=== PATIENT | female | born 1945 | race Caucasian/White ===

== ENCOUNTER 2018-02-08 16:28 | Inpatient (IN) | payer MEDICARE, BC ==
[~2018-02-08] VITALS: Ht 160 cm; Wt 110.5 kg
[~2018-02-08 16:28] MED LIST: AMLO1TAB53 PO; ASPI-611 PO; CHOL100046 PO; CINN500C2 PO; DIPH-423 PO; DULO-31 PO; GARL1000 PO; MAGN400C PO; MELA5TAB14 PO; METF500T PO; NEBI10TA2 PO; OMEP20CA4 PO; POTA8TAB46 PO; PRAV40TA65 PO; PRED20TA PO; UBID100C16 PO
[2018-02-08] MEDS ORDERED: hydrALAZINE 20mg/ml inj. IV ONE (17:05)
[2018-02-08] MEDS ORDERED: nitroGLYCERIN 0.4mg/hour patch TD ONE (17:05)
[2018-02-08] MEDS ORDERED: ondansetron/PF 4mg/2ml inj IV ONE ×2 (17:05→19:50)
[2018-02-08] MEDS ORDERED: aspirin 81mg tab.chew PO ONE (17:05)
[2018-02-08 17:29] LABS: BASOPHILS % (AUTO) 0.2 % (0-1); EOSINOPHILS # (AUTO) 0.3 X10'3 (0-0.9); EOSINOPHILS % (AUTO) 1.3 % (0-6); HEMATOCRIT 25.6 % (35.0-45.0); HEMOGLOBIN 8.4 g/dl (12.0-16.0); LYMPHOCYTES # (AUTO) 1.4 X10'3 (1.1-4.8); LYMPHOCYTES % (AUTO) 6.3 % (21-51); MEAN CORPUSCULAR VOLUME 84.9 FL (78-98); MEAN PLATELET VOLUME 8.8 FL (7.4-10.4); NEUTROPHILS # (AUTO) 18.1 X10'3 (1.8-7.7); NEUTROPHILS % (AUTO) 83.2 % (42-75); PLATELET COUNT 320 X10'3 (140-440); RED BLOOD COUNT 3.02 X10'6 (4.20-5.60); RED CELL DISTRIBUTION WIDTH 17.1 % (11.5-14.5); WHITE BLOOD COUNT 21.7 X10'3 (4.5-11.0)
[2018-02-08 17:49] LABS: ALANINE AMINOTRANSFERASE 751 U/L (12-78); ALBUMIN/GLOBULIN RATIO 0.8 (1.1-1.5); ALKALINE PHOSPHATASE 95 IU/L (46-116); ANION GAP 12 (8-16); ASPARTATE AMINO TRANSFERASE 422 U/L (10-37); BILIRUBIN,TOTAL 2.5 MG/DL (0.1-1.0); BLOOD UREA NITROGEN 20 MG/DL (7-18); BUN/CREATININE RATIO 18.5 (6.6-38.0); CALCIUM 8.8 MG/DL (8.5-10.1); CHLORIDE 96 MMOL/L (99-107); CREATININE 1.08 MG/DL (0.40-0.90); GLUCOSE 141 MG/DL (70-104); MAGNESIUM 1.8 MG/DL (1.5-2.4); SODIUM 136 MMOL/L (135-145); TOTAL CARBON DIOXIDE 27.9 MMOL/L (24-32); eGFR 50 ML/MIN
[2018-02-08 17:53] LABS: POTASSIUM 2.6 MMOL/L (3.5-5.1)
[2018-02-08 18:59] LABS: INR 1.3 INR; PARTIAL THROMBOPLASTIN TIME 23 SECONDS (22-32); PROTHROMBIN TIME 12.7 SECONDS (9.0-12.0)
[2018-02-08] MEDS: potassium 10mEq/100ml NS w/LIDOcaine (10mg/bag) IV SCH ×2 (19:09→21:09)
[2018-02-08 19:43] LABS: CLARITY,URINE SLIGHTLY CLOUDY (Clear); COLOR,URINE YELLOW (Yellow); GLUCOSE, URINE NEGATIVE (Neg); KETONES,URINE 15 mg/dl (Neg); LEUKOCYTE ESTERASE ,URINE SMALL (Neg); NITRITES, URINE NEGATIVE (Neg); OCCULT BLOOD,URINE NEGATIVE (Neg); PROTEIN,URINE NEGATIVE (Neg); UA COLLECTION TYPE CLN CATCH MIDSTREAM
[2018-02-08 19:52] LABS: BACTERIA,URINE 2+ /HPF (Neg); RBC,URINE 0-2 /HPF (0-2); SQUAMOUS EPITHELIAL CELL,UR FEW /LPF (FEW)
[2018-02-08] MEDS ORDERED: levoFLOXACIN-Levaquin 500mg/D5 100 ML IV ONE (20:05)
[2018-02-08 20:25] LABS: LIPASE 983 U/L (73-393)
[2018-02-08] MEDS ORDERED: FLU VACC QS2017-18 36MOS UP/PF 60 MCG/0.5 ML SYRINGE IMVAC ONE (20:55)
[2018-02-08] MEDS ORDERED: ESOM20CA PO (21:02)
[2018-02-08] MEDS ORDERED: diphenhydrAMINE 50 mg/ml inj IV ONE (21:40)
[2018-02-08] MEDS ORDERED: methylPREDNISolone sod succ 125mg/2ml vial IV ONE (21:40)
[2018-02-08] MEDS ORDERED: iohexol 350MG/ML 100ml bottle IV ONE (21:54)
[2018-02-09] VITALS (24 sets, daily range): BP systolic 80–134; BP diastolic 36–51
[2018-02-09] MEDS ORDERED: ondansetron/PF 4mg/2ml inj IV ONE (01:45)
[2018-02-09 02:09] LABS: HEMATOCRIT 27.3 % (35.0-45.0); HEMOGLOBIN 9.1 g/dl (12.0-16.0); MEAN CORPUSCULAR HEMOGLOBIN 28.1 PG (27.0-31.0); MEAN CORPUSCULAR HGB CONC 33.3 % (33.0-36.5); MEAN CORPUSCULAR VOLUME 84.5 FL (78-98); MEAN PLATELET VOLUME 9.4 FL (7.4-10.4); PLATELET COUNT 344 X10'3 (140-440); RED BLOOD COUNT 3.23 X10'6 (4.20-5.60); RED CELL DISTRIBUTION WIDTH 16.4 % (11.5-14.5); WHITE BLOOD COUNT 23.3 X10'3 (4.5-11.0)
[2018-02-09] MEDS ORDERED: magnesium hydroxide 30ml (MOM) UD suspension PO PRN (02:20)
[2018-02-09] MEDS ORDERED: mag hydrox/Alum hydrox/simeth 30ml oral suspension PO PRN (02:20)
[2018-02-09] MEDS ORDERED: magnesium 2GM in 50ml NS 50 ML IV PRN (02:20)
[2018-02-09] MEDS ORDERED: potassium Cl 20 mEq SR tablet PO PRN ×2 (02:20)
[2018-02-09] MEDS ORDERED: magnesium Cl slow-release 64mg tablet PO PRN (02:20)
[2018-02-09] MEDS ORDERED: acetaminophen 325mg tablet PO PRN (02:20)
[2018-02-09] MEDS ORDERED: potassium Cl 40MEQ/NS 500ml 500 ML IV PRN ×2 (02:20)
[2018-02-09] MEDS ORDERED: ondansetron/PF 4mg/2ml inj IV PRN (02:20)
[2018-02-09] MEDS ORDERED: HYDROmorphone inj. 0.5 MG/0.5 ML DISP.SYRIN IV PRN ×3 (02:20→08:05)
[2018-02-09] MEDS ORDERED: magnesium 4gm in 100ml NS 100 ML IV PRN (02:20)
[2018-02-09 02:34] LABS: PLATELET ESTIMATE NORMAL
[2018-02-09 02:37] LABS: ANISOCYTOSIS 1+; POLYCHROMASIA FEW
[2018-02-09 02:38] LABS: MICROCYTOSIS 1+
[2018-02-09 02:51] LABS: HEMOGLOBIN A1C 5.4 % (4.5-6.2)
[2018-02-09] MEDS ORDERED: normal saline 1000ML IV soln IVB ONE ×2 (03:05)
[2018-02-09] MEDS: potassium Cl 20mEq in NS 1,000 ML IV SCH ×2 (03:36→11:35)
[2018-02-09] MEDS ORDERED: metoclopramide 5 mg/ml inj IV PRN (05:15)
[2018-02-09] MEDS ORDERED: non-formulary drug (Amlodipine/Valsartan/Hctz (Exforge Hct 10-320-25 Mg Tab) 1 EACH) PO SCH (08:00)
[2018-02-09] MEDS: potassium chloride 8mEq ER tablet PO SCH ×2 (08:00→20:00)
[2018-02-09] MEDS ORDERED: levoFLOXACIN-Levaquin 750MG/D5 150 ML IV SCH (08:00)
[2018-02-09] MEDS ORDERED: amLODIPine 5mg tablet PO SCH (08:00)
[2018-02-09] MEDS ORDERED: magnesium oxide 400mg tablet PO SCH (08:00)
[2018-02-09] MEDS ORDERED: HYDROchlorothiazide 25mg tablet PO SCH (08:00)
[2018-02-09] MEDS ORDERED: CINNAMON BARK PO SCH (08:00)
[2018-02-09] MEDS ORDERED: duloxetine 30mg CAPSULE.DR PO SCH (08:00)
[2018-02-09] MEDS ORDERED: HYDROmorphone 1 mg/ml syringe IV PRN (08:05)
[2018-02-09 08:12] LABS: HEMATOCRIT 24.9 % (35.0-45.0); HEMOGLOBIN 8.1 g/dl (12.0-16.0); MEAN CORPUSCULAR HEMOGLOBIN 28.4 PG (27.0-31.0); MEAN CORPUSCULAR HGB CONC 32.7 % (33.0-36.5); MEAN PLATELET VOLUME 9.3 FL (7.4-10.4); PLATELET COUNT 293 X10'3 (140-440); RED BLOOD COUNT 2.86 X10'6 (4.20-5.60); RED CELL DISTRIBUTION WIDTH 17.8 % (11.5-14.5)
[2018-02-09 08:15] LABS: ALBUMIN 3.1 G/DL (3.4-5.0); ANION GAP 34 (8-16); BLOOD UREA NITROGEN 26 MG/DL (7-18); BUN/CREATININE RATIO 16.4 (6.6-38.0); CALCIUM 8.3 MG/DL (8.5-10.1); CHLORIDE 97 MMOL/L (99-107); CREATININE 1.59 MG/DL (0.40-0.90); GLUCOSE 156 MG/DL (70-104); SODIUM 140 MMOL/L (135-145); eGFR 32 ML/MIN
[2018-02-09 08:20] LABS: WHITE BLOOD COUNT 27.8 X10'3 (4.5-11.0)
[2018-02-09 08:30] LABS: ANISOCYTOSIS 2+; NUCLEATED RED BLOOD CELLS 3 /100WBC (0-0); PLATELET ESTIMATE NORMAL; POLYCHROMASIA 3+; TOTAL CELLS COUNTED 100
[2018-02-09] MEDS: aspirin 81mg tab.chew PO SCH (08:30)
[2018-02-09 08:31] LABS: ALBUMIN/GLOBULIN RATIO 0.8 (1.1-1.5); ALKALINE PHOSPHATASE 105 IU/L (46-116); BILIRUBIN,TOTAL 3.4 MG/DL (0.1-1.0); LARGE PLATELETS FEW; POIKILOCYTOSIS FEW
[2018-02-09 08:32] LABS: ALANINE AMINOTRANSFERASE 1609 U/L (12-78); ASPARTATE AMINO TRANSFERASE 1695 U/L (10-37)
[2018-02-09 08:34] LABS: POTASSIUM 2.9 MMOL/L (3.5-5.1)
[2018-02-09 08:35] LABS: TOTAL CARBON DIOXIDE 9.5 MMOL/L (24-32)
[2018-02-09] MEDS: metroNIDAZOLE-Flagyl 500mg/NS 100 ML IV SCH ×2 (09:50→16:00)
[2018-02-09 10:05] LABS: ABG BASE EXCESS -20.9 mmol/L (-2.0-3.0); ABG HCO3 6.1 mmol/L (22.0-26.0); ABG PCO2 (T) 18.3 mmHg (32.0-45.0); ABG PH (T) 7.144 (7.350-7.450); ABG PO2 (T) 129.9 mmHg (83-108); FCOHb 0.5 % (0.5-1.5); FMetHb 0.3 % (0.3-1.12); FO2Hb 96.2 % (94-100); TOTAL HEMOGLOBIN 8.2 G/dl (12.0-16.0)
[2018-02-09] MEDS ORDERED: clindamycin-Cleocin 900mg/D5W 50 ML IV ONE (11:10)
[2018-02-09] MEDS ORDERED: GENTAMICIN IV ONE (11:10)
[2018-02-09] MEDS ORDERED: NORMAL SALINE IV ONE (11:10)
[2018-02-09] MEDS: sodium bicarbonate (8.4%) inj. 150 MEQ in dextrose 5%-water 1,000 ML IV SCH ×2 (11:17→19:13)
[2018-02-09] MEDS ORDERED: LIDOcaine 1% (10mg/ml) 2ml vial ONE (11:42)
[2018-02-09] MEDS ORDERED: clindamycin phosphate 150mg/ml inj. ONE (11:59)
[2018-02-09] MEDS ORDERED: gentamicin 40 MG/1 ML inj ONE (11:59)
[2018-02-09] MEDS ORDERED: heparin 10,000 units/1 ML INJ ONE ×2 (11:59→13:47)
[2018-02-09] MEDS ORDERED: ePHEDrine 50MG/ML INJ. ONE (12:21)
[2018-02-09] MEDS ORDERED: sevoflurane 250ml liquid IH ONE (12:21)
[2018-02-09] MEDS ORDERED: sodium bicarbonate (8.4%) 1 mEq/ml syringe ONE (12:21)
[2018-02-09] MEDS ORDERED: fentaNYL /PF 50mcg/ml 5ml ampule ONE (12:23)
[2018-02-09] MEDS ORDERED: rocuronium 10mg/ml inj IV ONE ×2 (12:26→14:13)
[2018-02-09] MEDS ORDERED: etomidate 2mg/ml inj. ONE (12:26)
[2018-02-09] MEDS ORDERED: NORepinephrine 8 MG in normal saline 250ml IV soln IV ONE (12:35)
[2018-02-09 13:00] LABS: ABG BASE EXCESS -22.3 mmol/L (-2.0-3.0); ABG HCO3 6.6 mmol/L (22.0-26.0); ABG OXYGEN SATURATION 99.7 % (95-98); ABG PCO2 (T) 25.3 mmHg (32.0-45.0); ABG PH (T) 7.034 (7.350-7.450); ABG PO2 (T) 443.5 mmHg (83-108); FMetHb 0.2 % (0.3-1.12); FO2Hb 98.5 % (94-100); TOTAL HEMOGLOBIN 7.1 G/dl (12.0-16.0)
[2018-02-09] MEDS ORDERED: DexTRAN 40/D5W 500ml soln 500 ML IV ONE (14:55)
[2018-02-09] MEDS ORDERED: metroNIDAZOLE-Flagyl 500mg/NS 100 ML IV SCH (16:00)
[2018-02-09] MEDS ORDERED: FENTANYL-0.9 % NACL/PF 100 ML IV PRN (16:00)
[2018-02-09 16:03] LABS: HEMATOCRIT 22.1 % (35.0-45.0); HEMOGLOBIN 7.2 g/dl (12.0-16.0); MEAN CORPUSCULAR HEMOGLOBIN 28.3 PG (27.0-31.0); MEAN CORPUSCULAR HGB CONC 32.7 % (33.0-36.5); MEAN CORPUSCULAR VOLUME 86.7 FL (78-98); MEAN PLATELET VOLUME 8.2 FL (7.4-10.4); PLATELET COUNT 98 X10'3 (140-440); RED BLOOD COUNT 2.55 X10'6 (4.20-5.60)
[2018-02-09] MEDS ORDERED: albumin (Human) 5% 250 ML IV solution IV STA (16:18)
[2018-02-09 16:21] LABS: WHITE BLOOD COUNT 26.1 X10'3 (4.5-11.0)
[2018-02-09] MEDS ORDERED: albumin (Human) 5% 250ml 500 ML IV ONE (16:21)
[2018-02-09 16:23] LABS: ANISOCYTOSIS 2+; MICROCYTOSIS 1+; NUCLEATED RED BLOOD CELLS 3 /100WBC (0-0); PLATELET ESTIMATE DECREASED; POLYCHROMASIA 2+; TOTAL CELLS COUNTED 100; TOXIC GRANULATION 1+
[2018-02-09 16:26] LABS: ALBUMIN 1.3 G/DL (3.4-5.0); ALBUMIN/GLOBULIN RATIO 0.7 (1.1-1.5); ALKALINE PHOSPHATASE 75 IU/L (46-116); ANION GAP 28 (8-16); BILIRUBIN,TOTAL 2.3 MG/DL (0.1-1.0); BLOOD UREA NITROGEN 26 MG/DL (7-18); BUN/CREATININE RATIO 16.5 (6.6-38.0); CALCIUM 6.8 MG/DL (8.5-10.1); CHLORIDE 107 MMOL/L (99-107); CREATININE 1.58 MG/DL (0.40-0.90); GLUCOSE 175 MG/DL (70-104); POTASSIUM 4.5 MMOL/L (3.5-5.1); SODIUM 147 MMOL/L (135-145); TOTAL PROTEIN 3.2 G/DL (6.4-8.2); eGFR 32 ML/MIN
[2018-02-09 16:33] LABS: TOTAL CARBON DIOXIDE 11.8 MMOL/L (24-32)
[2018-02-09 16:40] LABS: OXYGEN SATURATION (MIXED VEN) 87.3 % (60-80); PO2 MIXED VENOUS (TEMP COR) 57.7 mmHg (35-46)
[2018-02-09 16:42] LABS: ALANINE AMINOTRANSFERASE 4287 U/L (12-78); ASPARTATE AMINO TRANSFERASE > 7000 U/L (10-37)
[2018-02-09 16:45] LABS: ABG BASE EXCESS -17.2 mmol/L (-2.0-3.0); ABG HCO3 10.4 mmol/L (22.0-26.0); ABG OXYGEN SATURATION 93.5 % (95-98); ABG PCO2 (T) 29.9 mmHg (32.0-45.0); ABG PH (T) 7.155 (7.350-7.450); ABG PO2 (T) 80.4 mmHg (83-108); FMetHb 0.4 % (0.3-1.12); FO2Hb 93.1 % (94-100); MINUTE VOLUME 6 L/min; PEEP 5 cm H2O; RESPIRATORY RATE 12 b/min; RESPIRATORY RATE (OBSERVED) 12 b/min; TIDAL VOLUME 500 mL; TOTAL HEMOGLOBIN 8.9 G/dl (12.0-16.0)
[2018-02-09] MEDS ORDERED: fentaNYL/PF 50MCG/1 ML 2ML syringe IV PRN (17:20)
[2018-02-09] MEDS ORDERED: midazolam 2 mg/2 ml injection IV ONE (17:20)
[2018-02-09] MEDS ORDERED: ipratropium/albuterol 3ml nebule NEB PRN (17:20)
[2018-02-09] MEDS ORDERED: heparin 10,000 units/1 ML INJ IV ONE (18:40)
[2018-02-09] MEDS ORDERED: heparin 10,000 units/1 ML INJ IV PRN (18:40)
[2018-02-09] MEDS: ipratropium/albuterol 3ml nebule NEB SCH ×2 (18:45→22:27)
[2018-02-09 19:01] LABS: ABG BASE EXCESS -14.3 mmol/L (-2.0-3.0); ABG HCO3 11.8 mmol/L (22.0-26.0); ABG OXYGEN SATURATION 91.2 % (95-98); ABG PCO2 (T) 28.9 mmHg (32.0-45.0); ABG PH (T) 7.232 (7.350-7.450); ABG PO2 (T) 71.7 mmHg (83-108); FCOHb 0.3 % (0.5-1.5); FMetHb 0.2 % (0.3-1.12); FO2Hb 90.7 % (94-100); MINUTE VOLUME 8 L/min; PATIENT TEMPERATURE 37.2; PEEP 5 cm H2O; RESPIRATORY RATE 20 b/min; RESPIRATORY RATE (OBSERVED) 20 b/min; TIDAL VOLUME 375 mL; TOTAL HEMOGLOBIN 9.9 G/dl (12.0-16.0)
[2018-02-09 19:10] LABS: CLARITY,URINE CLOUDY (Clear); COLOR,URINE YELLOW (Yellow); GLUCOSE, URINE NEGATIVE (Neg); KETONES,URINE TRACE mg/dl (Neg); LEUKOCYTE ESTERASE ,URINE NEGATIVE (Neg); NITRITES, URINE NEGATIVE (Neg); OCCULT BLOOD,URINE LARGE (Neg); PROTEIN,URINE 100 mg/dl (Neg)
[2018-02-09 19:15] LABS: INR 3.8 INR; PARTIAL THROMBOPLASTIN TIME 65 SECONDS (22-32); PROTHROMBIN TIME 37.1 SECONDS (9.0-12.0)
[2018-02-09 19:16] LABS: UA COLLECTION TYPE FOLEY CATH
[2018-02-09 19:18] LABS: AMORPHOUS URATES 3+; BACTERIA,URINE FEW /HPF (Neg); SQUAMOUS EPITHELIAL CELL,UR FEW /LPF (FEW); WBC,URINE NONE SEEN /HPF (0-4)
[2018-02-09 19:43] LABS: UA EOSINOPHILS NO EOS /HPF
[2018-02-09] MEDS ORDERED: pravastatin 40mg tablet PO SCH (21:00)
[2018-02-09] MEDS: Melatonin 3mg tablet PO SCH (21:00)
[2018-02-09 23:45] LABS: ABG BASE EXCESS -8.4 mmol/L (-2.0-3.0); ABG HCO3 15.7 mmol/L (22.0-26.0); ABG OXYGEN SATURATION 92.3 % (95-98); ABG PCO2 (T) 28.3 mmHg (32.0-45.0); ABG PH (T) 7.363 (7.350-7.450); ABG PO2 (T) 68.2 mmHg (83-108); FCOHb 0.6 % (0.5-1.5); FO2Hb 91.7 % (94-100); MINUTE VOLUME 8 L/min; PEEP 5 cm H2O; RESPIRATORY RATE 20 b/min; RESPIRATORY RATE (OBSERVED) 20 b/min; TIDAL VOLUME 375 mL; TOTAL HEMOGLOBIN 11.5 G/dl (12.0-16.0)
[2018-02-10] VITALS (28 sets, daily range): BP systolic 118–172; BP diastolic 42–58
[2018-02-10] MEDS ORDERED: dextrose ORAL solution 15 GM/59 ML bottle PO PRN ×2 (01:00)
[2018-02-10] MEDS ORDERED: dextrose 50%-water 50ml dispensing syringe IV PRN ×2 (01:00)
[2018-02-10] MEDS ORDERED: normal saline 500ml IV soln 500 ML IV PRN (01:00)
[2018-02-10] MEDS ORDERED: glucagon, human recombinant 1mg kit SUBCUT PRN (01:00)
[2018-02-10] MEDS ORDERED: MESSAGE TO PHARMACY PO ONE (01:00)
[2018-02-10] MEDS: sodium bicarbonate (8.4%) inj. 150 MEQ in dextrose 5%-water 1,000 ML IV SCH ×4 (02:29→18:45)
[2018-02-10] MEDS: ipratropium/albuterol 3ml nebule NEB SCH ×6 (02:33→22:24)
[2018-02-10] MEDS ORDERED: insulin Lispro (HumaLOG) vial - multi-dose SQ ONE (03:07)
[2018-02-10 03:12] LABS: BASOPHILS % (AUTO) 0 % (0-1); EOSINOPHILS % (AUTO) 0 % (0-6); HEMATOCRIT 34.2 % (35.0-45.0); HEMOGLOBIN 11.4 g/dl (12.0-16.0); LYMPHOCYTES # (AUTO) 0.9 X10'3 (1.1-4.8); LYMPHOCYTES % (AUTO) 2.6 % (21-51); MEAN CORPUSCULAR HEMOGLOBIN 28.8 PG (27.0-31.0); MEAN CORPUSCULAR HGB CONC 33.3 % (33.0-36.5); MEAN CORPUSCULAR VOLUME 86.4 FL (78-98); MEAN PLATELET VOLUME 9.4 FL (7.4-10.4); MONOCYTES # (AUTO) 0.6 X10'3 (0-0.9); MONOCYTES % (AUTO) 1.7 % (2-12); NEUTROPHILS # (AUTO) 32.9 X10'3 (1.8-7.7); NEUTROPHILS % (AUTO) 95.7 % (42-75); PLATELET COUNT 104 X10'3 (140-440); RED BLOOD COUNT 3.96 X10'6 (4.20-5.60)
[2018-02-10 03:26] LABS: WHITE BLOOD COUNT 34.4 X10'3 (4.5-11.0)
[2018-02-10 03:31] LABS: ALBUMIN 1.5 G/DL (3.4-5.0); ALKALINE PHOSPHATASE 79 IU/L (46-116); ANION GAP 17 (8-16); BILIRUBIN,TOTAL 3.7 MG/DL (0.1-1.0); BLOOD UREA NITROGEN 32 MG/DL (7-18); BUN/CREATININE RATIO 15.8 (6.6-38.0); CHLORIDE 103 MMOL/L (99-107); CREATININE 2.03 MG/DL (0.40-0.90); GLUCOSE 293 MG/DL (70-104); HDL CHOLESTEROL 8 MG/DL (35-60); LDL CHOLESTEROL 7 MG/DL (50-100); MAGNESIUM 1.5 MG/DL (1.5-2.4); POTASSIUM 3.1 MMOL/L (3.5-5.1); SODIUM 141 MMOL/L (135-145); TOTAL CARBON DIOXIDE 20.7 MMOL/L (24-32); eGFR 24 ML/MIN
[2018-02-10 04:10] LABS: ABG BASE EXCESS -5.1 mmol/L (-2.0-3.0); ABG HCO3 18.8 mmol/L (22.0-26.0); ABG OXYGEN SATURATION 92.6 % (95-98); ABG PCO2 (T) 31.8 mmHg (32.0-45.0); ABG PH (T) 7.391 (7.350-7.450); ABG PO2 (T) 69.3 mmHg (83-108); FCOHb 0.7 % (0.5-1.5); FMetHb 0.1 % (0.3-1.12); FO2Hb 91.9 % (94-100); MINUTE VOLUME 8 L/min; PATIENT TEMPERATURE 37.2; PEEP 5 cm H2O; RESPIRATORY RATE 20 b/min; RESPIRATORY RATE (OBSERVED) 20 b/min; TIDAL VOLUME 375 mL; TOTAL HEMOGLOBIN 12.1 G/dl (12.0-16.0)
[2018-02-10 04:16] LABS: ANISOCYTOSIS 1+; NUCLEATED RED BLOOD CELLS 3 /100WBC (0-0); PLATELET ESTIMATE DECREASED; TOTAL CELLS COUNTED 100
[2018-02-10 04:17] LABS: MICROCYTOSIS 1+; POLYCHROMASIA 1+; TOXIC GRANULATION 1+
[2018-02-10 04:19] LABS: ALBUMIN/GLOBULIN RATIO 1.4 (1.1-1.5); TOTAL PROTEIN 2.6 G/DL (6.4-8.2)
[2018-02-10 04:34] LABS: CHOLESTEROL < 50 MG/DL (0-200); TRIGLYCERIDES < 15 MG/DL (20-135)
[2018-02-10 04:35] LABS: ALANINE AMINOTRANSFERASE 4932 U/L (12-78)
[2018-02-10 04:36] LABS: ASPARTATE AMINO TRANSFERASE > 7000 U/L (10-37)
[2018-02-10] MEDS: K and/or MAG REPLACEMENT MC SCH ×2 (04:47→08:00)
[2018-02-10] MEDS ORDERED: POTASSIUM CL IV ONE ×2 (04:55→04:57)
[2018-02-10] MEDS ORDERED: [UNRECOGNIZED DRUG - OTHER] IV ONE (04:55)
[2018-02-10] MEDS ORDERED: potassium Cl 40MEQ/250ML bag 250 ML IV ONE (05:00)
[2018-02-10] MEDS ORDERED: potassium Cl 40MEQ/NS 500ml 500 ML IV ONE (05:10)
[2018-02-10] MEDS ORDERED: potassium Cl 40MEQ/250ML bag 250 ML IV PRN ×2 (05:15)
[2018-02-10] MEDS: FENTANYL-0.9 % NACL/PF 100 ML IV PRN ×3 (05:57→22:08)
[2018-02-10] MEDS ORDERED: gentamicin 40 MG/1 ML inj ONE (07:19)
[2018-02-10] MEDS ORDERED: clindamycin phosphate 150mg/ml inj. ONE (07:19)
[2018-02-10] MEDS: insulin Lispro (HumaLOG) vial - multi-dose SQ SCH ×3 (07:47→20:17)
[2018-02-10] MEDS: levoFLOXACIN-Levaquin 250mg/D5 50 ML IV SCH ×2 (07:53→08:00)
[2018-02-10] MEDS: fluconazole-Diflucan 200mg/NS 100 ML IV SCH ×2 (07:57→08:00)
[2018-02-10] MEDS: potassium chloride 8mEq ER tablet PO SCH ×2 (08:00→20:18)
[2018-02-10] MEDS: metroNIDAZOLE-Flagyl 500mg/NS 100 ML IV SCH ×4 (08:00→23:52)
[2018-02-10] MEDS ORDERED: levoFLOXACIN-Levaquin 500mg/D5 100 ML IV SCH (08:00)
[2018-02-10] MEDS ORDERED: rocuronium 10mg/ml inj IV ONE (08:08)
[2018-02-10] MEDS ORDERED: fentaNYL/PF 50MCG/1 ML 2ML syringe ONE (08:08)
[2018-02-10] MEDS ORDERED: sevoflurane 250ml liquid IH ONE (08:18)
[2018-02-10] MEDS: aspirin 81mg tab.chew PO SCH (08:30)
[2018-02-10] MEDS: DexTRAN 40/D5W 500ml soln 500 ML IV SCH ×4 (10:37→21:05)
[2018-02-10 11:26] LABS: ABG BASE EXCESS -1.7 mmol/L (-2.0-3.0); ABG HCO3 22.6 mmol/L (22.0-26.0); ABG OXYGEN SATURATION 94.5 % (95-98); ABG PCO2 (T) 36.9 mmHg (32.0-45.0); ABG PH (T) 7.405 (7.350-7.450); ABG PO2 (T) 80.3 mmHg (83-108); FCOHb 0.3 % (0.5-1.5); FMetHb 0.2 % (0.3-1.12); PEEP 5 cm H2O; RESPIRATORY RATE 20 b/min; TIDAL VOLUME 375 mL; TOTAL HEMOGLOBIN 11.9 G/dl (12.0-16.0)
[2018-02-10 11:31] LABS: HEMATOCRIT 33.9 % (35.0-45.0); HEMOGLOBIN 11.3 g/dl (12.0-16.0); MEAN CORPUSCULAR HEMOGLOBIN 28.8 PG (27.0-31.0); MEAN CORPUSCULAR HGB CONC 33.4 % (33.0-36.5); MEAN CORPUSCULAR VOLUME 86.2 FL (78-98); MEAN PLATELET VOLUME 9.8 FL (7.4-10.4); PLATELET COUNT 106 X10'3 (140-440); RED BLOOD COUNT 3.93 X10'6 (4.20-5.60); WHITE BLOOD COUNT 21.2 X10'3 (4.5-11.0)
[2018-02-10 11:45] LABS: MAGNESIUM 1.4 MG/DL (1.5-2.4)
[2018-02-10] MEDS ORDERED: calcium chloride inj. 1,000 MG in normal saline 100ml IV soln 90 ML IV ONE ×4 (12:25)
[2018-02-10] MEDS: midazolam 100mg in NS 100ml 100 ML IV PRN (16:00)
[2018-02-10] MEDS: mineral oil/petrolatum ophthal oint EACHEYE SCH (20:12)
[2018-02-10] MEDS: Melatonin 3mg tablet PO SCH (20:12)
[2018-02-10] MEDS: insulin glargine (Lantus) pen - multi-dose SQ SCH (21:00)
[2018-02-11] VITALS (25 sets, daily range): BP systolic 110–154; BP diastolic 38–52
[2018-02-11] MEDS: insulin Lispro (HumaLOG) vial - multi-dose SQ SCH ×2 (02:18→08:14)
[2018-02-11] MEDS: sodium bicarbonate (8.4%) inj. 150 MEQ in dextrose 5%-water 1,000 ML IV SCH (02:23)
[2018-02-11] MEDS: ipratropium/albuterol 3ml nebule NEB SCH ×6 (02:29→23:29)
[2018-02-11 02:44] LABS: BASOPHILS % (AUTO) 0 % (0-1); EOSINOPHILS % (AUTO) 0.1 % (0-6); HEMATOCRIT 26.8 % (35.0-45.0); HEMOGLOBIN 9.1 g/dl (12.0-16.0); LYMPHOCYTES # (AUTO) 0.2 X10'3 (1.1-4.8); MEAN CORPUSCULAR HEMOGLOBIN 29.2 PG (27.0-31.0); MEAN CORPUSCULAR VOLUME 85.9 FL (78-98); MEAN PLATELET VOLUME 10.4 FL (7.4-10.4); MONOCYTES # (AUTO) 0.1 X10'3 (0-0.9); MONOCYTES % (AUTO) 0.4 % (2-12); NEUTROPHILS % (AUTO) 98.5 % (42-75); PLATELET COUNT 67 X10'3 (140-440); RED BLOOD COUNT 3.12 X10'6 (4.20-5.60); RED CELL DISTRIBUTION WIDTH 17.3 % (11.5-14.5); WHITE BLOOD COUNT 18.3 X10'3 (4.5-11.0)
[2018-02-11 03:00] LABS: ALKALINE PHOSPHATASE 111 IU/L (46-116); ANION GAP 10 (8-16); BILIRUBIN,TOTAL 2.5 MG/DL (0.1-1.0); BLOOD UREA NITROGEN 41 MG/DL (7-18); CHLORIDE 100 MMOL/L (99-107); CREATININE 2.92 MG/DL (0.40-0.90); GLUCOSE 183 MG/DL (70-104); POTASSIUM 3.8 MMOL/L (3.5-5.1); SODIUM 138 MMOL/L (135-145); eGFR 16 ML/MIN
[2018-02-11 03:16] LABS: ABG BASE EXCESS 3.8 mmol/L (-2.0-3.0); ABG HCO3 26.8 mmol/L (22.0-26.0); ABG OXYGEN SATURATION 93.9 % (95-98); ABG PCO2 (T) 34.5 mmHg (32.0-45.0); ABG PH (T) 7.509 (7.350-7.450); ABG PO2 (T) 73.3 mmHg (83-108); FCOHb 0.3 % (0.5-1.5); FMetHb 0.2 % (0.3-1.12); FO2Hb 93.4 % (94-100); MINUTE VOLUME 8 L/min; PATIENT TEMPERATURE 37.2; PEEP 5 cm H2O; RESPIRATORY RATE 20 b/min; RESPIRATORY RATE (OBSERVED) 21 b/min; TIDAL VOLUME 375 mL; TOTAL HEMOGLOBIN 9.7 G/dl (12.0-16.0)
[2018-02-11] MEDS: DexTRAN 40/D5W 500ml soln 500 ML IV SCH ×2 (03:31→05:50)
[2018-02-11 04:38] LABS: ALANINE AMINOTRANSFERASE 1620 U/L (12-78); ALBUMIN < 0.6 G/DL (3.4-5.0); ALBUMIN/GLOBULIN RATIO 0.3 (1.1-1.5); ASPARTATE AMINO TRANSFERASE 4611 U/L (10-37)
[2018-02-11 04:40] LABS: CALCIUM 5.7 MG/DL (8.5-10.1)
[2018-02-11] MEDS ORDERED: magnesium 4gm in 100ml NS 100 ML IV PRN (04:55)
[2018-02-11] MEDS ORDERED: magnesium 2GM in 50ml NS 50 ML IV PRN (04:55)
[2018-02-11] MEDS: FENTANYL-0.9 % NACL/PF 100 ML IV PRN ×2 (05:26→14:38)
[2018-02-11 05:35] LABS: ANISOCYTOSIS 1+; NUCLEATED RED BLOOD CELLS 3 /100WBC (0-0); PLATELET ESTIMATE DECREASED; POLYCHROMASIA FEW; TOTAL CELLS COUNTED 100; TOXIC GRANULATION 1+
[2018-02-11] MEDS: fluconazole-Diflucan 200mg/NS 100 ML IV SCH (07:54)
[2018-02-11] MEDS: metroNIDAZOLE-Flagyl 500mg/NS 100 ML IV SCH ×2 (07:54→16:43)
[2018-02-11] MEDS: levoFLOXACIN-Levaquin 250mg/D5 50 ML IV SCH (07:54)
[2018-02-11] MEDS: mineral oil/petrolatum ophthal oint EACHEYE SCH ×4 (07:54→20:36)
[2018-02-11] MEDS: potassium chloride 8mEq ER tablet PO SCH ×2 (08:00→20:00)
[2018-02-11] MEDS ORDERED: rocuronium 10mg/ml inj IV ONE (08:00)
[2018-02-11] MEDS ORDERED: sod chloride 0.9% 10ml flush syringe IV ONE (08:00)
[2018-02-11] MEDS: K and/or MAG REPLACEMENT MC SCH (08:02)
[2018-02-11] MEDS ORDERED: Dextrose 10%-water IV solution 1,000 ML IV PRN ×2 (12:15→14:37)
[2018-02-11] MEDS ORDERED: fat emulsion IV 181.82 ML, MVI, adult No.4 with vit. K 4.55 ML, Trace element-5 inj. 0.... IV SCH ×4 (12:15)
[2018-02-11] MEDS: aspirin 81mg tab.chew PO SCH (13:15)
[2018-02-11] MEDS: normal saline 1000ml 1,000 ML IV SCH (13:21)
[2018-02-11 13:29] LABS: ALKALINE PHOSPHATASE 93 IU/L (46-116); ANION GAP 8 (8-16); BILIRUBIN,TOTAL 2.4 MG/DL (0.1-1.0); BLOOD UREA NITROGEN 49 MG/DL (7-18); BUN/CREATININE RATIO 14.5 (6.6-38.0); CHLORIDE 97 MMOL/L (99-107); CREATININE 3.37 MG/DL (0.40-0.90); GLUCOSE 99 MG/DL (70-104); MAGNESIUM 1.4 MG/DL (1.5-2.4); PHOSPHORUS 3.2 MG/DL (2.3-4.5); POTASSIUM 3.7 MMOL/L (3.5-5.1); PREALBUMIN 3.1 MG/DL (19-36); SODIUM 134 MMOL/L (135-145); TOTAL CARBON DIOXIDE 28.9 MMOL/L (24-32); TRIGLYCERIDES 15 MG/DL (20-135); eGFR 13 ML/MIN
[2018-02-11] MEDS ORDERED: calcium chloride 100 MG/1 ML inj IV ONE (13:30)
[2018-02-11] MEDS ORDERED: calcium chloride inj. 1,000 MG in normal saline 100ml IV soln 90 ML IV ONE ×2 (13:35→15:00)
[2018-02-11 13:52] LABS: ALBUMIN < 0.6 G/DL (3.4-5.0)
[2018-02-11 13:53] LABS: ALANINE AMINOTRANSFERASE 3330 U/L (12-78); ASPARTATE AMINO TRANSFERASE 31.1 U/L (10-37)
[2018-02-11 14:08] LABS: ALBUMIN/GLOBULIN RATIO 0.4 (1.1-1.5); TOTAL PROTEIN < 2.0 G/DL (6.4-8.2)
[2018-02-11] MEDS: albumin (Human) 5% 250 ML IV solution IV PRN ×2 (14:13→17:50)
[2018-02-11] MEDS: midazolam 100mg in NS 100ml 100 ML IV PRN (17:09)
[2018-02-11] MEDS ORDERED: lactobacillus rhamnosus 10,000 MMU CELLS/CAPSULE PO SCH (20:00)
[2018-02-11] MEDS: fat emulsion IV 100 ML, MVI, adult No.4 with vit. K 10 ML, Trace element-5 inj. 1 ML in... IV SCH ×4 (20:21)
[2018-02-11] MEDS ORDERED: potassium Cl oral solution 20 MEQ/15 ML PO PRN ×2 (20:23)
[2018-02-11] MEDS: insulin glargine (Lantus) pen - multi-dose SQ SCH (20:37)
[2018-02-11] MEDS: Melatonin 3mg tablet PO SCH (20:37)
[2018-02-12] VITALS (22 sets, daily range): BP systolic 102–130; BP diastolic 38–53
[2018-02-12] MEDS: metroNIDAZOLE-Flagyl 500mg/NS 100 ML IV SCH ×4 (00:21→23:28)
[2018-02-12] MEDS: albumin (Human) 5% 250 ML IV solution IV PRN ×4 (00:22→21:30)
[2018-02-12] MEDS: mineral oil/petrolatum ophthal oint EACHEYE SCH ×4 (02:08→19:57)
[2018-02-12 02:15] LABS: BASOPHILS % (AUTO) 0 % (0-1); EOSINOPHILS % (AUTO) 0 % (0-6); HEMATOCRIT 28.4 % (35.0-45.0); HEMOGLOBIN 9.6 g/dl (12.0-16.0); LYMPHOCYTES # (AUTO) 0.3 X10'3 (1.1-4.8); LYMPHOCYTES % (AUTO) 0.9 % (21-51); MEAN CORPUSCULAR HEMOGLOBIN 29.3 PG (27.0-31.0); MEAN CORPUSCULAR HGB CONC 33.8 % (33.0-36.5); MEAN CORPUSCULAR VOLUME 86.5 FL (78-98); MEAN PLATELET VOLUME 10.2 FL (7.4-10.4); MONOCYTES # (AUTO) 0.2 X10'3 (0-0.9); MONOCYTES % (AUTO) 0.7 % (2-12); NEUTROPHILS # (AUTO) 27.7 X10'3 (1.8-7.7); NEUTROPHILS % (AUTO) 98.4 % (42-75); RED BLOOD COUNT 3.29 X10'6 (4.20-5.60); RED CELL DISTRIBUTION WIDTH 17.9 % (11.5-14.5)
[2018-02-12 02:25] LABS: PLATELET COUNT 46 X10'3 (140-440); WHITE BLOOD COUNT 28.1 X10'3 (4.5-11.0)
[2018-02-12 02:47] LABS: ALBUMIN 0.9 G/DL (3.4-5.0); ALKALINE PHOSPHATASE 107 IU/L (46-116); ANION GAP 10 (8-16); BILIRUBIN,TOTAL 4.1 MG/DL (0.1-1.0); BLOOD UREA NITROGEN 56 MG/DL (7-18); BUN/CREATININE RATIO 14.1 (6.6-38.0); CALCIUM 6.2 MG/DL (8.5-10.1); CHLORIDE 97 MMOL/L (99-107); CREATININE 3.96 MG/DL (0.40-0.90); GLUCOSE 132 MG/DL (70-104); MAGNESIUM 1.5 MG/DL (1.5-2.4); PHOSPHORUS 4.2 MG/DL (2.3-4.5); POTASSIUM 4.4 MMOL/L (3.5-5.1); PREALBUMIN 3.7 MG/DL (19-36); SODIUM 133 MMOL/L (135-145); TOTAL CARBON DIOXIDE 26.5 MMOL/L (24-32); TRIGLYCERIDES 22 MG/DL (20-135); eGFR 11 ML/MIN
[2018-02-12 03:09] LABS: ALANINE AMINOTRANSFERASE 1137 U/L (12-78); ASPARTATE AMINO TRANSFERASE 2517 U/L (10-37); TOTAL PROTEIN 2.8 G/DL (6.4-8.2)
[2018-02-12 03:10] LABS: ALBUMIN/GLOBULIN RATIO 0.5 (1.1-1.5)
[2018-02-12 03:31] LABS: ABG BASE EXCESS 1.5 mmol/L (-2.0-3.0); ABG HCO3 24.2 mmol/L (22.0-26.0); ABG PCO2 (T) 30.9 mmHg (32.0-45.0); ABG PO2 (T) 70.5 mmHg (83-108); FCOHb 0.5 % (0.5-1.5); FMetHb 0.2 % (0.3-1.12); FO2Hb 94.3 % (94-100); MINUTE VOLUME 8 L/min; PATIENT TEMPERATURE 36.4; PEEP 5 cm H2O; RESPIRATORY RATE 20 b/min; RESPIRATORY RATE (OBSERVED) 20 b/min; TIDAL VOLUME 375 mL; TOTAL HEMOGLOBIN 10.4 G/dl (12.0-16.0)
[2018-02-12] MEDS: ipratropium/albuterol 3ml nebule NEB SCH ×6 (03:45→23:42)
[2018-02-12 04:47] LABS: ANISOCYTOSIS 2+; NUCLEATED RED BLOOD CELLS 1 /100WBC (0-0); PLATELET ESTIMATE DECREASED; TOTAL CELLS COUNTED 100; TOXIC GRANULATION 1+
[2018-02-12 04:48] LABS: POLYCHROMASIA FEW
[2018-02-12] MEDS: K and/or MAG REPLACEMENT MC SCH (08:00)
[2018-02-12] MEDS: potassium chloride 8mEq ER tablet PO SCH (08:00)
[2018-02-12 09:27] LABS: PROTHROMBIN TIME 20.6 SECONDS (9.0-12.0)
[2018-02-12] MEDS: fluconazole-Diflucan 200mg/NS 100 ML IV SCH (09:39)
[2018-02-12 10:12] LABS: CALCIUM 5.2 MG/DL (8.5-10.1)
[2018-02-12] MEDS: levoFLOXACIN-Levaquin 250mg/D5 50 ML IV SCH (10:52)
[2018-02-12] MEDS: aspirin 81mg tab.chew PO SCH (11:44)
[2018-02-12] MEDS: FENTANYL-0.9 % NACL/PF 100 ML IV PRN (12:58)
[2018-02-12] MEDS: insulin Lispro (HumaLOG) vial - multi-dose SQ SCH (14:42)
[2018-02-12] MEDS: famotidine/PF 10 mg/ml inj IV SCH (19:57)
[2018-02-12] MEDS: insulin glargine (Lantus) pen - multi-dose SQ SCH (20:57)
[2018-02-12] MEDS: insulin regular, human vial - multi-dose SQ SCH (20:59)
[2018-02-12] MEDS: Melatonin 3mg tablet PO SCH (21:00)
[2018-02-12] MEDS: fat emulsion IV 100 ML, MVI, adult No.4 with vit. K 10 ML, Trace element-5 inj. 1 ML in... IV SCH ×4 (21:33)
[2018-02-13] VITALS (36 sets, daily range): BP systolic 103–146; BP diastolic 39–54
[2018-02-13] MEDS: albumin (Human) 5% 250 ML IV solution IV PRN ×2 (00:28→21:41)
[2018-02-13] MEDS: mineral oil/petrolatum ophthal oint EACHEYE SCH ×4 (02:01→20:50)
[2018-02-13] MEDS: insulin regular, human vial - multi-dose SQ SCH ×4 (02:07→20:50)
[2018-02-13 03:25] LABS: MINUTE VOLUME 8 L/min; PATIENT TEMPERATURE 37.6; PEEP 5 cm H2O; RESPIRATORY RATE 16 b/min; RESPIRATORY RATE (OBSERVED) 16 b/min; TIDAL VOLUME 375 mL
[2018-02-13 03:26] LABS: ABG BASE EXCESS 1.3 mmol/L (-2.0-3.0); ABG HCO3 25.9 mmol/L (22.0-26.0); ABG OXYGEN SATURATION 93.2 % (95-98); ABG PO2 (T) 73.3 mmHg (83-108); FCOHb 0.2 % (0.5-1.5); FMetHb 0.2 % (0.3-1.12); FO2Hb 92.8 % (94-100); TOTAL HEMOGLOBIN 10.4 G/dl (12.0-16.0)
[2018-02-13] MEDS: ipratropium/albuterol 3ml nebule NEB SCH ×6 (03:26→23:09)
[2018-02-13 05:16] LABS: BASOPHILS % (AUTO) 0 % (0-1); EOSINOPHILS % (AUTO) 0.1 % (0-6); HEMATOCRIT 27.7 % (35.0-45.0); HEMOGLOBIN 9.3 g/dl (12.0-16.0); LYMPHOCYTES # (AUTO) 0.3 X10'3 (1.1-4.8); LYMPHOCYTES % (AUTO) 1.7 % (21-51); MEAN CORPUSCULAR HEMOGLOBIN 29.4 PG (27.0-31.0); MEAN CORPUSCULAR HGB CONC 33.7 % (33.0-36.5); MEAN CORPUSCULAR VOLUME 87.4 FL (78-98); MEAN PLATELET VOLUME 10.5 FL (7.4-10.4); MONOCYTES # (AUTO) 0.3 X10'3 (0-0.9); NEUTROPHILS # (AUTO) 16.9 X10'3 (1.8-7.7); NEUTROPHILS % (AUTO) 96.2 % (42-75); RED BLOOD COUNT 3.17 X10'6 (4.20-5.60); RED CELL DISTRIBUTION WIDTH 18.4 % (11.5-14.5); WHITE BLOOD COUNT 17.5 X10'3 (4.5-11.0)
[2018-02-13 05:31] LABS: ALANINE AMINOTRANSFERASE 855 U/L (12-78); ALKALINE PHOSPHATASE 114 IU/L (46-116); ANION GAP 8 (8-16); BILIRUBIN,TOTAL 4.8 MG/DL (0.1-1.0); BLOOD UREA NITROGEN 71 MG/DL (7-18); CALCIUM 6.5 MG/DL (8.5-10.1); CHLORIDE 96 MMOL/L (99-107); CREATININE 4.74 MG/DL (0.40-0.90); GLUCOSE 213 MG/DL (70-104); MAGNESIUM 1.6 MG/DL (1.5-2.4); SODIUM 133 MMOL/L (135-145); TOTAL CARBON DIOXIDE 28.7 MMOL/L (24-32); eGFR 9 ML/MIN
[2018-02-13 05:32] LABS: ALBUMIN/GLOBULIN RATIO 0.5 (1.1-1.5); ASPARTATE AMINO TRANSFERASE 1487 U/L (10-37); PHOSPHORUS 3.1 MG/DL (2.3-4.5)
[2018-02-13 05:54] LABS: PLATELET COUNT 19 X10'3 (140-440)
[2018-02-13] MEDS: K and/or MAG REPLACEMENT MC SCH (08:00)
[2018-02-13] MEDS: fluconazole-Diflucan 200mg/NS 100 ML IV SCH (08:36)
[2018-02-13] MEDS: famotidine/PF 10 mg/ml inj IV SCH ×2 (08:36→20:00)
[2018-02-13] MEDS: aspirin 81mg tab.chew PO SCH (08:38)
[2018-02-13] MEDS ORDERED: VECuronium br 10mg inj. IV STA (08:54)
[2018-02-13] MEDS ORDERED: rocuronium 10mg/ml inj IV ONE ×2 (09:55→16:21)
[2018-02-13] MEDS: levoFLOXACIN-Levaquin 250mg/D5 50 ML IV SCH (09:56)
[2018-02-13] MEDS: metroNIDAZOLE-Flagyl 500mg/NS 100 ML IV SCH ×2 (11:11→16:00)
[2018-02-13] MEDS: normal saline 1000ml 1,000 ML IV SCH ×2 (11:35→19:27)
[2018-02-13 11:48] LABS: INR 1.6 INR; PROTHROMBIN TIME 16.6 SECONDS (9.0-12.0)
[2018-02-13] MEDS ORDERED: clindamycin phosphate 150mg/ml inj. ONE (13:16)
[2018-02-13] MEDS ORDERED: gentamicin 40 MG/1 ML inj ONE (13:16)
[2018-02-13 14:14] LABS: BASOPHILS % (AUTO) 0 % (0-1); EOSINOPHILS # (AUTO) 0.1 X10'3 (0-0.9); EOSINOPHILS % (AUTO) 0.3 % (0-6); HEMATOCRIT 26.9 % (35.0-45.0); HEMOGLOBIN 9.1 g/dl (12.0-16.0); LYMPHOCYTES # (AUTO) 0.3 X10'3 (1.1-4.8); LYMPHOCYTES % (AUTO) 1.7 % (21-51); MEAN CORPUSCULAR HEMOGLOBIN 29.3 PG (27.0-31.0); MEAN CORPUSCULAR HGB CONC 33.8 % (33.0-36.5); MEAN CORPUSCULAR VOLUME 86.7 FL (78-98); MEAN PLATELET VOLUME 8.1 FL (7.4-10.4); MONOCYTES # (AUTO) 0.1 X10'3 (0-0.9); MONOCYTES % (AUTO) 0.4 % (2-12); NEUTROPHILS # (AUTO) 18.7 X10'3 (1.8-7.7); NEUTROPHILS % (AUTO) 97.6 % (42-75); PLATELET COUNT 70 X10'3 (140-440); RED BLOOD COUNT 3.11 X10'6 (4.20-5.60); WHITE BLOOD COUNT 19.1 X10'3 (4.5-11.0)
[2018-02-13 14:58] LABS: ANISOCYTOSIS 2+; PLATELET ESTIMATE DECREASED; TOTAL CELLS COUNTED 100; TOXIC GRANULATION 2+; TOXIC VACUOLATION 1+
[2018-02-13 14:59] LABS: BURR CELLS FEW; POLYCHROMASIA FEW; SCHISTOCYTES FEW
[2018-02-13] MEDS ORDERED: ringers solution, lacted 1,000 ML IV SCH (15:36)
[2018-02-13] MEDS ORDERED: ondansetron/PF 4mg/2ml inj IV PRN (15:40)
[2018-02-13] MEDS ORDERED: proCHLORperazine 10 MG/2 ml inj IV PRN (15:40)
[2018-02-13] MEDS ORDERED: desflurane 240ml liquid inh. IH ONE (16:00)
[2018-02-13] MEDS ORDERED: MIDAZolam 5mg/5ml vial ONE (16:11)
[2018-02-13] MEDS ORDERED: fentaNYL /PF 50mcg/ml 5ml ampule ONE (16:11)
[2018-02-13] MEDS: fat emulsion IV 100 ML, MVI, adult No.4 with vit. K 10 ML, Trace element-5 inj. 1 ML in... IV SCH ×4 (19:24)
[2018-02-13 19:55] LABS: ABG BASE EXCESS -5.6 mmol/L (-2.0-3.0); ABG OXYGEN SATURATION 92.7 % (95-98); ABG PCO2 (T) 51.6 mmHg (32.0-45.0); ABG PH (T) 7.245 (7.350-7.450); ABG PO2 (T) 74.7 mmHg (83-108); FCOHb 0.3 % (0.5-1.5); FMetHb 0.4 % (0.3-1.12); FO2Hb 92.1 % (94-100); MINUTE VOLUME 8 L/min; PATIENT TEMPERATURE 36.6; PEEP 5 cm H2O; RESPIRATORY RATE 16 b/min; RESPIRATORY RATE (OBSERVED) 16 b/min; TIDAL VOLUME 375 mL; TOTAL HEMOGLOBIN 11.3 G/dl (12.0-16.0)
[2018-02-13] MEDS: insulin glargine (Lantus) pen - multi-dose SQ SCH (20:49)
[2018-02-13] MEDS: Melatonin 3mg tablet PO SCH (20:52)
[2018-02-13] MEDS: midazolam 100mg in NS 100ml 100 ML IV PRN (21:34)
[2018-02-13] MEDS ORDERED: famotidine 20mg tablet OGT ONE (21:40)
[2018-02-13] MEDS ORDERED: famotidine 20mg tablet PO ONE (21:40)
[2018-02-14] VITALS (25 sets, daily range): BP systolic 5–133; BP diastolic 38–54
[2018-02-14] MEDS: metroNIDAZOLE-Flagyl 500mg/NS 100 ML IV SCH ×4 (00:27→23:58)
[2018-02-14 01:04] LABS: HEMATOCRIT 28.7 % (35.0-45.0); HEMOGLOBIN 9.4 g/dl (12.0-16.0); MEAN CORPUSCULAR HEMOGLOBIN 28.8 PG (27.0-31.0); MEAN CORPUSCULAR VOLUME 87.4 FL (78-98); MEAN PLATELET VOLUME 9.3 FL (7.4-10.4); RED BLOOD COUNT 3.28 X10'6 (4.20-5.60); RED CELL DISTRIBUTION WIDTH 18.8 % (11.5-14.5)
[2018-02-14 01:25] LABS: PLATELET COUNT 20 X10'3 (140-440)
[2018-02-14] MEDS: insulin regular, human vial - multi-dose SQ SCH ×3 (02:08→14:55)
[2018-02-14] MEDS: mineral oil/petrolatum ophthal oint EACHEYE SCH ×4 (02:09→20:40)
[2018-02-14 03:03] LABS: BASOPHILS % (AUTO) 0 % (0-1); EOSINOPHILS % (AUTO) 0.1 % (0-6); HEMATOCRIT 27.9 % (35.0-45.0); HEMOGLOBIN 9.3 g/dl (12.0-16.0); LYMPHOCYTES # (AUTO) 0.4 X10'3 (1.1-4.8); LYMPHOCYTES % (AUTO) 1.9 % (21-51); MEAN CORPUSCULAR HEMOGLOBIN 29.1 PG (27.0-31.0); MEAN CORPUSCULAR HGB CONC 33.2 % (33.0-36.5); MEAN CORPUSCULAR VOLUME 87.6 FL (78-98); MEAN PLATELET VOLUME 9.9 FL (7.4-10.4); MONOCYTES # (AUTO) 0.7 X10'3 (0-0.9); MONOCYTES % (AUTO) 3.7 % (2-12); NEUTROPHILS # (AUTO) 17.7 X10'3 (1.8-7.7); NEUTROPHILS % (AUTO) 94.3 % (42-75); RED BLOOD COUNT 3.19 X10'6 (4.20-5.60); RED CELL DISTRIBUTION WIDTH 19.1 % (11.5-14.5); WHITE BLOOD COUNT 18.8 X10'3 (4.5-11.0)
[2018-02-14 03:14] LABS: ALANINE AMINOTRANSFERASE 639 U/L (12-78); ALBUMIN 1.1 G/DL (3.4-5.0); ALKALINE PHOSPHATASE 132 IU/L (46-116); ANION GAP 10 (8-16); ASPARTATE AMINO TRANSFERASE 832 U/L (10-37); BILIRUBIN,TOTAL 6.2 MG/DL (0.1-1.0); BLOOD UREA NITROGEN 81 MG/DL (7-18); BUN/CREATININE RATIO 15.7 (6.6-38.0); CALCIUM 6.6 MG/DL (8.5-10.1); CHLORIDE 96 MMOL/L (99-107); CREATININE 5.15 MG/DL (0.40-0.90); GLUCOSE 241 MG/DL (70-104); MAGNESIUM 1.5 MG/DL (1.5-2.4); POTASSIUM 4.9 MMOL/L (3.5-5.1); SODIUM 131 MMOL/L (135-145); eGFR 8 ML/MIN
[2018-02-14] MEDS: ipratropium/albuterol 3ml nebule NEB SCH ×6 (03:19→23:00)
[2018-02-14 03:31] LABS: ABG BASE EXCESS -0.8 mmol/L (-2.0-3.0); ABG HCO3 24.3 mmol/L (22.0-26.0); ABG OXYGEN SATURATION 97.4 % (95-98); ABG PCO2 (T) 41.6 mmHg (32.0-45.0); ABG PH (T) 7.384 (7.350-7.450); ABG PO2 (T) 96.7 mmHg (83-108); FCOHb 0.3 % (0.5-1.5); FMetHb 0.1 % (0.3-1.12); MINUTE VOLUME 10 L/min; PATIENT TEMPERATURE 36.7; PEEP 5 cm H2O; RESPIRATORY RATE 20 b/min; RESPIRATORY RATE (OBSERVED) 23 b/min; TIDAL VOLUME 375 mL
[2018-02-14 03:40] LABS: ALBUMIN/GLOBULIN RATIO 0.6 (1.1-1.5); TOTAL PROTEIN 3.1 G/DL (6.4-8.2)
[2018-02-14 03:55] LABS: PLATELET COUNT 20 X10'3 (140-440)
[2018-02-14 06:30] LABS: BANDS% (MANUAL) 3 % (0-10); LYMPHOCYTES % (MANUAL) 1 % (21-51); MONOCYTES % (MANUAL) 11 % (2-12); NEUTROPHILS % (MANUAL) 85 % (42-75); TOTAL CELLS COUNTED 100
[2018-02-14 06:31] LABS: ANISOCYTOSIS 2+; BURR CELLS 1+; NUCLEATED RED BLOOD CELLS 1 /100WBC (0-0); PLATELET ESTIMATE DECREASED
[2018-02-14] MEDS: K and/or MAG REPLACEMENT MC SCH (08:00)
[2018-02-14] MEDS: famotidine 20mg tablet OGT SCH ×3 (08:00→20:58)
[2018-02-14] MEDS: aspirin 81mg tab.chew PO SCH (08:00)
[2018-02-14] MEDS: levoFLOXACIN-Levaquin 250mg/D5 50 ML IV SCH (08:12)
[2018-02-14] MEDS: fluconazole-Diflucan 200mg/NS 100 ML IV SCH (08:12)
[2018-02-14] MEDS ORDERED: argatroban in NS 50mg/50ml 50 ML IV SCH (10:00)
[2018-02-14] MEDS: FENTANYL-0.9 % NACL/PF 100 ML IV PRN (10:57)
[2018-02-14] MEDS: albumin (Human) 5% 250 ML IV solution IV PRN ×2 (12:05→21:12)
[2018-02-14] MEDS: midazolam 100mg in NS 100ml 100 ML IV PRN (12:48)
[2018-02-14 13:11] LABS: ABG BASE EXCESS -1.4 mmol/L (-2.0-3.0); ABG HCO3 23.7 mmol/L (22.0-26.0); ABG OXYGEN SATURATION 78.5 % (95-98); ABG PCO2 (T) 40.6 mmHg (32.0-45.0); ABG PH (T) 7.382 (7.350-7.450); ABG PO2 (T) 41.6 mmHg (83-108); FCOHb 0.8 % (0.5-1.5); FMetHb 0.3 % (0.3-1.12); FO2Hb 77.6 % (94-100); PATIENT TEMPERATURE 36.4; TOTAL HEMOGLOBIN 8.9 G/dl (12.0-16.0)
[2018-02-14] MEDS ORDERED: normal saline 1000ml 100 ML IV PRN (15:49)
[2018-02-14] MEDS ORDERED: normal saline 1000ml 250 ML IV PRN (15:49)
[2018-02-14] MEDS ORDERED: epoetin 20,000 units/ml inj IV ONE (15:50)
[2018-02-14] MEDS ORDERED: anticoagulant citrate dextrose (ACD) 1000ml solution HE ONE ×2 (18:45)
[2018-02-14] MEDS: [UNRECOGNIZED DRUG - REMARK] IV SCH ×3 (20:40)
[2018-02-14] MEDS: Melatonin 3mg tablet PO SCH (20:41)
[2018-02-14] MEDS: insulin glargine (Lantus) pen - multi-dose SQ SCH (20:42)
[2018-02-14] MEDS ORDERED: argatroban in NS 50mg/50ml 50 ML IV ONE (23:12)
[2018-02-15] VITALS (28 sets, daily range): BP systolic 70–148; BP diastolic 35–64
[2018-02-15 02:15] LABS: ALANINE AMINOTRANSFERASE 448 U/L (12-78); ALBUMIN 1.4 G/DL (3.4-5.0); ALKALINE PHOSPHATASE 233 IU/L (46-116); ANION GAP 12 (8-16); ASPARTATE AMINO TRANSFERASE 513 U/L (10-37); BILIRUBIN,TOTAL 8.9 MG/DL (0.1-1.0); BLOOD UREA NITROGEN 71 MG/DL (7-18); BUN/CREATININE RATIO 16.9 (6.6-38.0); CHLORIDE 97 MMOL/L (99-107); CREATININE 4.19 MG/DL (0.40-0.90); GLUCOSE 158 MG/DL (70-104); MAGNESIUM 1.7 MG/DL (1.5-2.4); PREALBUMIN 7.3 MG/DL (19-36); SODIUM 133 MMOL/L (135-145); TOTAL CARBON DIOXIDE 24.5 MMOL/L (24-32); eGFR 10 ML/MIN
[2018-02-15 02:17] LABS: ALBUMIN/GLOBULIN RATIO 0.7 (1.1-1.5); PHOSPHORUS 3.2 MG/DL (2.3-4.5); POTASSIUM 5.1 MMOL/L (3.5-5.1); TOTAL PROTEIN 3.3 G/DL (6.4-8.2); TRIGLYCERIDES 37 MG/DL (20-135)
[2018-02-15 02:25] LABS: PARTIAL THROMBOPLASTIN TIME 141 SECONDS (22-32)
[2018-02-15] MEDS: mineral oil/petrolatum ophthal oint EACHEYE SCH ×4 (02:32→20:15)
[2018-02-15] MEDS: insulin regular, human vial - multi-dose SQ SCH ×4 (02:33→20:24)
[2018-02-15] MEDS: ipratropium/albuterol 3ml nebule NEB SCH ×6 (03:00→23:11)
[2018-02-15 03:21] LABS: ABG BASE EXCESS -2.9 mmol/L (-2.0-3.0); ABG OXYGEN SATURATION 95.9 % (95-98); ABG PCO2 (T) 32.4 mmHg (32.0-45.0); ABG PH (T) 7.428 (7.350-7.450); ABG PO2 (T) 82.4 mmHg (83-108); FCOHb 0.6 % (0.5-1.5); FMetHb 0.2 % (0.3-1.12); FO2Hb 95.1 % (94-100); MINUTE VOLUME 10 L/min; PATIENT TEMPERATURE 36.7; PEEP 5 cm H2O; RESPIRATORY RATE 20 b/min; RESPIRATORY RATE (OBSERVED) 22 b/min; TIDAL VOLUME 375 mL; TOTAL HEMOGLOBIN 8.6 G/dl (12.0-16.0)
[2018-02-15] MEDS: levoFLOXACIN-Levaquin 250mg/D5 50 ML IV SCH (07:10)
[2018-02-15] MEDS: fluconazole-Diflucan 200mg/NS 100 ML IV SCH (07:10)
[2018-02-15] MEDS: metroNIDAZOLE-Flagyl 500mg/NS 100 ML IV SCH ×2 (07:10→20:17)
[2018-02-15] MEDS: K and/or MAG REPLACEMENT MC SCH (07:11)
[2018-02-15] MEDS: aspirin 81mg tab.chew PO SCH (07:12)
[2018-02-15] MEDS ORDERED: normal saline 1000ml 250 ML IV PRN (08:00)
[2018-02-15] MEDS ORDERED: normal saline 1000ml 100 ML IV PRN (08:00)
[2018-02-15] MEDS ORDERED: epoetin 20,000 units/ml inj IV ONE (08:00)
[2018-02-15] MEDS: albumin (Human) 5% 250 ML IV solution IV PRN (08:01)
[2018-02-15 08:52] LABS: BASOPHILS % (AUTO) 0.1 % (0-1); EOSINOPHILS # (AUTO) 0.1 X10'3 (0-0.9); EOSINOPHILS % (AUTO) 0.5 % (0-6); HEMATOCRIT 23.1 % (35.0-45.0); HEMOGLOBIN 7.7 g/dl (12.0-16.0); LYMPHOCYTES # (AUTO) 0.5 X10'3 (1.1-4.8); LYMPHOCYTES % (AUTO) 2.1 % (21-51); MEAN CORPUSCULAR HEMOGLOBIN 29.1 PG (27.0-31.0); MEAN CORPUSCULAR HGB CONC 33.4 % (33.0-36.5); MEAN CORPUSCULAR VOLUME 86.9 FL (78-98); MEAN PLATELET VOLUME 8.4 FL (7.4-10.4); MONOCYTES # (AUTO) 1.4 X10'3 (0-0.9); MONOCYTES % (AUTO) 5.6 % (2-12); NEUTROPHILS # (AUTO) 23.3 X10'3 (1.8-7.7); NEUTROPHILS % (AUTO) 91.7 % (42-75); RED BLOOD COUNT 2.66 X10'6 (4.20-5.60); RED CELL DISTRIBUTION WIDTH 20.1 % (11.5-14.5)
[2018-02-15 09:02] LABS: PARTIAL THROMBOPLASTIN TIME > 153 SECONDS (22-32)
[2018-02-15 09:10] LABS: WHITE BLOOD COUNT 25.4 X10'3 (4.5-11.0)
[2018-02-15 09:11] LABS: PLATELET COUNT 12 X10'3 (140-440)
[2018-02-15] MEDS ORDERED: anticoagulant citrate dextrose (ACD) 1000ml solution IV ONE ×2 (09:15→09:30)
[2018-02-15] MEDS: [UNRECOGNIZED DRUG - REMARK] IV SCH ×6 (10:18→20:15)
[2018-02-15] MEDS: normal saline 1000ml 1,000 ML IV SCH (11:35)
[2018-02-15] MEDS: FENTANYL-0.9 % NACL/PF 100 ML IV PRN (12:19)
[2018-02-15 12:49] LABS: BASOPHILS % (AUTO) 0 % (0-1); EOSINOPHILS # (AUTO) 0.2 X10'3 (0-0.9); EOSINOPHILS % (AUTO) 0.8 % (0-6); HEMOGLOBIN 7.3 g/dl (12.0-16.0); LYMPHOCYTES # (AUTO) 0.7 X10'3 (1.1-4.8); LYMPHOCYTES % (AUTO) 2.8 % (21-51); MEAN CORPUSCULAR HEMOGLOBIN 29.2 PG (27.0-31.0); MEAN CORPUSCULAR HGB CONC 33.7 % (33.0-36.5); MEAN CORPUSCULAR VOLUME 86.8 FL (78-98); MONOCYTES # (AUTO) 1.3 X10'3 (0-0.9); MONOCYTES % (AUTO) 5.2 % (2-12); NEUTROPHILS # (AUTO) 23.3 X10'3 (1.8-7.7); NEUTROPHILS % (AUTO) 91.2 % (42-75); PLATELET COUNT 93 X10'3 (140-440); RED CELL DISTRIBUTION WIDTH 19.7 % (11.5-14.5)
[2018-02-15 12:52] LABS: HEMATOCRIT 21.7 % (35.0-45.0); WHITE BLOOD COUNT 25.5 X10'3 (4.5-11.0)
[2018-02-15 12:53] LABS: PLATELET COUNT 93 X10'3 (140-440)
[2018-02-15 13:02] LABS: ANISOCYTOSIS 2+; PLATELET ESTIMATE DECREASED; TOTAL CELLS COUNTED 100; TOXIC GRANULATION 2+
[2018-02-15 13:03] LABS: BURR CELLS 2+; POLYCHROMASIA FEW; SCHISTOCYTES FEW
[2018-02-15 13:05] LABS: ROULEAUX 1+
[2018-02-15 13:06] LABS: HYPOCHROMASIA 2+
[2018-02-15 13:09] LABS: D-DIMER 25.59 MG/L FEU (0-0.50); PROTHROMBIN TIME 85.1 SECONDS (9.0-12.0)
[2018-02-15 13:11] LABS: INR 8.9 INR; PARTIAL THROMBOPLASTIN TIME 141 SECONDS (22-32)
[2018-02-15 17:28] LABS: PARTIAL THROMBOPLASTIN TIME > 153 SECONDS (22-32)
[2018-02-15] MEDS: famotidine 20mg tablet OGT SCH (20:00)
[2018-02-15] MEDS: Melatonin 3mg tablet PO SCH (20:18)
[2018-02-15] MEDS: insulin glargine (Lantus) pen - multi-dose SQ SCH (20:25)
[2018-02-15 20:35] LABS: BASOPHILS % (AUTO) 0 % (0-1); EOSINOPHILS % (AUTO) 0 % (0-6); HEMATOCRIT 25.8 % (35.0-45.0); HEMOGLOBIN 8.7 g/dl (12.0-16.0); LYMPHOCYTES # (AUTO) 0.6 X10'3 (1.1-4.8); LYMPHOCYTES % (AUTO) 2.1 % (21-51); MEAN CORPUSCULAR HEMOGLOBIN 29.3 PG (27.0-31.0); MEAN CORPUSCULAR HGB CONC 33.6 % (33.0-36.5); MEAN CORPUSCULAR VOLUME 87.1 FL (78-98); MEAN PLATELET VOLUME 9.5 FL (7.4-10.4); MONOCYTES # (AUTO) 1.4 X10'3 (0-0.9); MONOCYTES % (AUTO) 5.1 % (2-12); NEUTROPHILS # (AUTO) 25.5 X10'3 (1.8-7.7); NEUTROPHILS % (AUTO) 92.8 % (42-75); RED BLOOD COUNT 2.96 X10'6 (4.20-5.60); RED CELL DISTRIBUTION WIDTH 18.8 % (11.5-14.5)
[2018-02-15 20:45] LABS: WHITE BLOOD COUNT 27.5 X10'3 (4.5-11.0)
[2018-02-15 20:46] LABS: PLATELET COUNT 37 X10'3 (140-440)
[2018-02-16] VITALS (26 sets, daily range): BP systolic 100–144; BP diastolic 38–60
[2018-02-16] MEDS: albumin (Human) 5% 250 ML IV solution IV PRN ×3 (00:27→19:42)
[2018-02-16] MEDS: metroNIDAZOLE-Flagyl 500mg/NS 100 ML IV SCH ×3 (00:27→16:27)
[2018-02-16 01:51] LABS: ANISOCYTOSIS 2+; PLATELET ESTIMATE DECREASED; TOTAL CELLS COUNTED 100
[2018-02-16 01:52] LABS: TOXIC GRANULATION 2+; TOXIC VACUOLATION 1+
[2018-02-16 01:53] LABS: POLYCHROMASIA 1+
[2018-02-16 01:54] LABS: POIKILOCYTOSIS 1+
[2018-02-16] MEDS: insulin regular, human vial - multi-dose SQ SCH ×4 (02:00→20:18)
[2018-02-16] MEDS: mineral oil/petrolatum ophthal oint EACHEYE SCH ×4 (02:01→19:41)
[2018-02-16 02:07] LABS: BURR CELLS 1+
[2018-02-16 02:10] LABS: LARGE PLATELETS FEW
[2018-02-16 02:46] LABS: BASOPHILS % (AUTO) 0 % (0-1); EOSINOPHILS # (AUTO) 0.5 X10'3 (0-0.9); EOSINOPHILS % (AUTO) 1.7 % (0-6); HEMATOCRIT 23.8 % (35.0-45.0); HEMOGLOBIN 8.1 g/dl (12.0-16.0); LYMPHOCYTES # (AUTO) 0.9 X10'3 (1.1-4.8); MEAN CORPUSCULAR HEMOGLOBIN 29.7 PG (27.0-31.0); MEAN CORPUSCULAR VOLUME 87.3 FL (78-98); MEAN PLATELET VOLUME 10.5 FL (7.4-10.4); MONOCYTES # (AUTO) 1.8 X10'3 (0-0.9); MONOCYTES % (AUTO) 6.1 % (2-12); NEUTROPHILS # (AUTO) 26.3 X10'3 (1.8-7.7); NEUTROPHILS % (AUTO) 89.2 % (42-75); RED BLOOD COUNT 2.73 X10'6 (4.20-5.60); RED CELL DISTRIBUTION WIDTH 18.8 % (11.5-14.5)
[2018-02-16 02:57] LABS: MAGNESIUM 1.8 MG/DL (1.5-2.4)
[2018-02-16] MEDS: ipratropium/albuterol 3ml nebule NEB SCH ×6 (03:08→23:09)
[2018-02-16 03:19] LABS: WHITE BLOOD COUNT 29.5 X10'3 (4.5-11.0)
[2018-02-16 03:20] LABS: PLATELET COUNT 21 X10'3 (140-440)
[2018-02-16 03:26] LABS: ABG BASE EXCESS 0.1 mmol/L (-2.0-3.0); ABG HCO3 24.3 mmol/L (22.0-26.0); ABG OXYGEN SATURATION 96.6 % (95-98); ABG PCO2 (T) 37.3 mmHg (32.0-45.0); ABG PH (T) 7.432 (7.350-7.450); FCOHb 0.6 % (0.5-1.5); FMetHb 0.2 % (0.3-1.12); FO2Hb 95.8 % (94-100); MINUTE VOLUME 9 L/min; PEEP 5 cm H2O; RESPIRATORY RATE 20 b/min; RESPIRATORY RATE (OBSERVED) 23 b/min; TIDAL VOLUME 375 mL; TOTAL HEMOGLOBIN 8.5 G/dl (12.0-16.0)
[2018-02-16 03:42] LABS: PARTIAL THROMBOPLASTIN TIME 135 SECONDS (22-32)
[2018-02-16 07:24] LABS: NUCLEATED RED BLOOD CELLS 1 /100WBC (0-0); PLATELET ESTIMATE DECREASED; SMUDGE CELLS FEW; TOTAL CELLS COUNTED 100; TOXIC GRANULATION 3+
[2018-02-16 07:25] LABS: ANISOCYTOSIS 2+; BURR CELLS 1+; POIKILOCYTOSIS 1+; POLYCHROMASIA 1+; TARGET CELLS FEW
[2018-02-16 07:26] LABS: LARGE PLATELETS FEW
[2018-02-16 07:41] LABS: ALANINE AMINOTRANSFERASE 329 U/L (12-78); ALBUMIN 1.5 G/DL (3.4-5.0); ALKALINE PHOSPHATASE 304 IU/L (46-116); ANION GAP 10 (8-16); ASPARTATE AMINO TRANSFERASE 393 U/L (10-37); BILIRUBIN,TOTAL 10.5 MG/DL (0.1-1.0); BLOOD UREA NITROGEN 61 MG/DL (7-18); BUN/CREATININE RATIO 18.2 (6.6-38.0); CALCIUM 7.2 MG/DL (8.5-10.1); CHLORIDE 99 MMOL/L (99-107); CREATININE 3.36 MG/DL (0.40-0.90); GLUCOSE 142 MG/DL (70-104); SODIUM 133 MMOL/L (135-145); TOTAL CARBON DIOXIDE 23.8 MMOL/L (24-32); eGFR 13 ML/MIN
[2018-02-16 07:42] LABS: ALBUMIN/GLOBULIN RATIO 0.8 (1.1-1.5); POTASSIUM 4.7 MMOL/L (3.5-5.1); TOTAL PROTEIN 3.3 G/DL (6.4-8.2)
[2018-02-16] MEDS: fluconazole-Diflucan 200mg/NS 100 ML IV SCH (07:53)
[2018-02-16] MEDS: levoFLOXACIN-Levaquin 250mg/D5 50 ML IV SCH (07:53)
[2018-02-16] MEDS: K and/or MAG REPLACEMENT MC SCH (07:54)
[2018-02-16] MEDS: famotidine 20mg tablet OGT SCH (07:54)
[2018-02-16] MEDS: aspirin 81mg tab.chew PO SCH (07:54)
[2018-02-16] MEDS ORDERED: normal saline 1000ml 100 ML IV PRN (08:00)
[2018-02-16] MEDS ORDERED: normal saline 1000ml 250 ML IV PRN (08:00)
[2018-02-16] MEDS ORDERED: epoetin 20,000 units/ml inj IV ONE (08:00)
[2018-02-16] MEDS ORDERED: anticoagulant citrate dextrose (ACD) 1000ml solution IV ONE ×2 (09:00)
[2018-02-16] MEDS ORDERED: aztreonam inj. 2,000 MG in normal saline 100ml IV soln 100 ML IV ONE (11:25)
[2018-02-16 11:52] LABS: CLARITY,URINE CLOUDY (Clear); COLOR,URINE BROWN (Yellow); GLUCOSE, URINE 100 mg/dl (Neg); KETONES,URINE NEGATIVE (Neg); LEUKOCYTE ESTERASE ,URINE TRACE (Neg); OCCULT BLOOD,URINE LARGE (Neg); PH,URINE 6.5 (4.8-8.0); PROTEIN,URINE 100 mg/dl (Neg)
[2018-02-16 12:08] LABS: UA COLLECTION TYPE FOLEY CATH
[2018-02-16 12:11] LABS: BACTERIA,URINE FEW /HPF (Neg); MUCUS STRANDS NONE SEEN /LPF (Neg); RBC,URINE TNTC /HPF (0-2); RENAL CELLS, URINE FEW /HPF; SQUAMOUS EPITHELIAL CELL,UR FEW /LPF (FEW); TRANSITIONAL EPI CELLS,URINE FEW /HPF
[2018-02-16 12:12] LABS: COARSE GRANULAR CAST 0-3 /LPF (NEGATIVE)
[2018-02-16] MEDS ORDERED: aztreonam inj. 2,000 MG in dextrose 5%-water 100 ML IV ONE (12:25)
[2018-02-16] MEDS ORDERED: DEXTROSE 5% IV SCH (13:00)
[2018-02-16] MEDS ORDERED: AZTREONAM IV SCH (13:00)
[2018-02-16] MEDS ORDERED: WATER IV SCH (13:00)
[2018-02-16 13:40] LABS: HBSAG SCREEN Negative (Negative)
[2018-02-16] MEDS: famotidine/PF 10 mg/ml inj IV SCH ×2 (15:39→19:41)
[2018-02-16] MEDS: FENTANYL-0.9 % NACL/PF 100 ML IV PRN (16:59)
[2018-02-16] MEDS: [UNRECOGNIZED DRUG - REMARK] IV SCH ×3 (19:42)
[2018-02-16] MEDS: Melatonin 3mg tablet PO SCH (19:42)
[2018-02-16] MEDS: AZTREONAM IV SCH (19:42)
[2018-02-16] MEDS: WATER IV SCH (19:42)
[2018-02-16] MEDS: DEXTROSE 5% IV SCH (19:42)
[2018-02-16] MEDS ORDERED: aztreonam inj. 1,000 MG in normal saline 100ml IV soln 100 ML IV SCH (20:00)
[2018-02-16] MEDS: insulin glargine (Lantus) pen - multi-dose SQ SCH (20:19)
[2018-02-17] VITALS (27 sets, daily range): BP systolic 108–160; BP diastolic 36–68
[2018-02-17] MEDS: metroNIDAZOLE-Flagyl 500mg/NS 100 ML IV SCH ×3 (00:40→17:42)
[2018-02-17] MEDS: mineral oil/petrolatum ophthal oint EACHEYE SCH ×4 (02:29→20:03)
[2018-02-17] MEDS: insulin regular, human vial - multi-dose SQ SCH ×4 (02:31→20:18)
[2018-02-17] MEDS: ipratropium/albuterol 3ml nebule NEB SCH ×6 (03:15→23:00)
[2018-02-17 04:33] LABS: ABG BASE EXCESS 1.1 mmol/L (-2.0-3.0); ABG HCO3 25.1 mmol/L (22.0-26.0); ABG OXYGEN SATURATION 96.8 % (95-98); ABG PCO2 (T) 37.4 mmHg (32.0-45.0); ABG PH (T) 7.445 (7.350-7.450); ABG PO2 (T) 88.5 mmHg (83-108); FCOHb 1.2 % (0.5-1.5); FMetHb 0.3 % (0.3-1.12); FO2Hb 95.3 % (94-100); MINUTE VOLUME 8 L/min; PATIENT TEMPERATURE 37.2; PEEP 5 cm H2O; RESPIRATORY RATE 20 b/min; RESPIRATORY RATE (OBSERVED) 22 b/min; TIDAL VOLUME 375 mL; TOTAL HEMOGLOBIN 8.3 G/dl (12.0-16.0)
[2018-02-17 07:52] LABS: HEMATOCRIT 22.2 % (35.0-45.0); HEMOGLOBIN 7.6 g/dl (12.0-16.0); MEAN CORPUSCULAR HEMOGLOBIN 29.8 PG (27.0-31.0); MEAN CORPUSCULAR HGB CONC 34.3 % (33.0-36.5); MEAN CORPUSCULAR VOLUME 86.9 FL (78-98); MEAN PLATELET VOLUME 9.5 FL (7.4-10.4); RED BLOOD COUNT 2.56 X10'6 (4.20-5.60); RED CELL DISTRIBUTION WIDTH 19.6 % (11.5-14.5)
[2018-02-17] MEDS: WATER IV SCH ×2 (07:58→20:03)
[2018-02-17] MEDS: DEXTROSE 5% IV SCH ×2 (07:58→20:03)
[2018-02-17] MEDS: AZTREONAM IV SCH ×2 (07:58→20:03)
[2018-02-17] MEDS: K and/or MAG REPLACEMENT MC SCH (08:00)
[2018-02-17 08:18] LABS: ALANINE AMINOTRANSFERASE 225 U/L (12-78); ALBUMIN 1.4 G/DL (3.4-5.0); ALKALINE PHOSPHATASE 332 IU/L (46-116); ANION GAP 6 (8-16); ASPARTATE AMINO TRANSFERASE 275 U/L (10-37); BILIRUBIN,TOTAL 11.8 MG/DL (0.1-1.0); BLOOD UREA NITROGEN 56 MG/DL (7-18); BUN/CREATININE RATIO 18.9 (6.6-38.0); CHLORIDE 100 MMOL/L (99-107); CREATININE 2.97 MG/DL (0.40-0.90); GLUCOSE 103 MG/DL (70-104); MAGNESIUM 1.9 MG/DL (1.5-2.4); SODIUM 133 MMOL/L (135-145); TOTAL CARBON DIOXIDE 27.1 MMOL/L (24-32); eGFR 16 ML/MIN
[2018-02-17 08:20] LABS: PLATELET COUNT 23 X10'3 (140-440); WHITE BLOOD COUNT 32.8 X10'3 (4.5-11.0)
[2018-02-17 08:23] LABS: NUCLEATED RED BLOOD CELLS 2 /100WBC (0-0); TOTAL CELLS COUNTED 100
[2018-02-17 08:24] LABS: ALBUMIN/GLOBULIN RATIO 0.7 (1.1-1.5); ANISOCYTOSIS 2+; BURR CELLS 1+; PHOSPHORUS 3.4 MG/DL (2.3-4.5); PLATELET ESTIMATE DECREASED; POLYCHROMASIA 1+; POTASSIUM 4.9 MMOL/L (3.5-5.1); TOTAL PROTEIN 3.3 G/DL (6.4-8.2); TOXIC GRANULATION 3+
[2018-02-17] MEDS: famotidine/PF 10 mg/ml inj IV SCH ×2 (08:24→20:03)
[2018-02-17 08:25] LABS: SCHISTOCYTES FEW; SMUDGE CELLS FEW; TARGET CELLS 1+
[2018-02-17] MEDS: aspirin 81mg tab.chew PO SCH (08:30)
[2018-02-17] MEDS: fluconazole-Diflucan 200mg/NS 100 ML IV SCH (10:13)
[2018-02-17] MEDS: albumin (Human) 5% 250 ML IV solution IV PRN ×3 (12:46→21:50)
[2018-02-17] MEDS: normal saline 1000ml 1,000 ML IV SCH (14:06)
[2018-02-17] MEDS: [UNRECOGNIZED DRUG - REMARK] IV SCH ×3 (17:43)
[2018-02-17] MEDS: Melatonin 3mg tablet PO SCH (20:04)
[2018-02-17] MEDS: insulin glargine (Lantus) pen - multi-dose SQ SCH (20:15)
[2018-02-17 22:27] LABS: UREA NITROGEN 24HR,URINE 0.1 GM/24HR (7-20)
[2018-02-18] VITALS (28 sets, daily range): BP systolic 82–151; BP diastolic 32–64
[2018-02-18] MEDS: FENTANYL-0.9 % NACL/PF 100 ML IV PRN ×2 (00:09→13:35)
[2018-02-18] MEDS: metroNIDAZOLE-Flagyl 500mg/NS 100 ML IV SCH ×3 (00:11→16:39)
[2018-02-18] MEDS: mineral oil/petrolatum ophthal oint EACHEYE SCH ×4 (01:55→19:42)
[2018-02-18] MEDS: albumin (Human) 5% 250 ML IV solution IV PRN ×4 (01:58→16:39)
[2018-02-18] MEDS: insulin regular, human vial - multi-dose SQ SCH ×4 (02:06→19:48)
[2018-02-18] MEDS: ipratropium/albuterol 3ml nebule NEB SCH ×6 (02:34→23:11)
[2018-02-18 03:30] LABS: BASOPHILS % (AUTO) 0 % (0-1); EOSINOPHILS % (AUTO) 0 % (0-6); HEMOGLOBIN 7.2 g/dl (12.0-16.0); LYMPHOCYTES % (AUTO) 2.9 % (21-51); MEAN CORPUSCULAR HGB CONC 34.3 % (33.0-36.5); MEAN CORPUSCULAR VOLUME 87.2 FL (78-98); MONOCYTES # (AUTO) 2.3 X10'3 (0-0.9); MONOCYTES % (AUTO) 6.9 % (2-12); NEUTROPHILS # (AUTO) 29.7 X10'3 (1.8-7.7); NEUTROPHILS % (AUTO) 90.2 % (42-75); RED BLOOD COUNT 2.39 X10'6 (4.20-5.60)
[2018-02-18 03:44] LABS: HEMATOCRIT 20.9 % (35.0-45.0); WHITE BLOOD COUNT 32.9 X10'3 (4.5-11.0)
[2018-02-18 03:45] LABS: ALANINE AMINOTRANSFERASE 164 U/L (12-78); ALBUMIN 1.6 G/DL (3.4-5.0); ALKALINE PHOSPHATASE 317 IU/L (46-116); ANION GAP 7 (8-16); ASPARTATE AMINO TRANSFERASE 200 U/L (10-37); BILIRUBIN,TOTAL 12.2 MG/DL (0.1-1.0); BLOOD UREA NITROGEN 71 MG/DL (7-18); BUN/CREATININE RATIO 20.6 (6.6-38.0); CALCIUM 7.2 MG/DL (8.5-10.1); CHLORIDE 96 MMOL/L (99-107); CREATININE 3.45 MG/DL (0.40-0.90); GLUCOSE 115 MG/DL (70-104); MAGNESIUM 1.9 MG/DL (1.5-2.4); PLATELET COUNT 38 X10'3 (140-440); SODIUM 129 MMOL/L (135-145); TOTAL CARBON DIOXIDE 26.2 MMOL/L (24-32); eGFR 13 ML/MIN
[2018-02-18 03:47] LABS: ALBUMIN/GLOBULIN RATIO 0.8 (1.1-1.5); PHOSPHORUS 4.2 MG/DL (2.3-4.5); POTASSIUM 5.2 MMOL/L (3.5-5.1); TOTAL PROTEIN 3.6 G/DL (6.4-8.2)
[2018-02-18 03:51] LABS: ABG BASE EXCESS -1.9 mmol/L (-2.0-3.0); ABG HCO3 22.5 mmol/L (22.0-26.0); ABG PCO2 (T) 35.7 mmHg (32.0-45.0); ABG PH (T) 7.415 (7.350-7.450); ABG PO2 (T) 79.1 mmHg (83-108); FCOHb 1.2 % (0.5-1.5); FO2Hb 93.9 % (94-100); MINUTE VOLUME 9 L/min; PATIENT TEMPERATURE 36.9; PEEP 5 cm H2O; RESPIRATORY RATE 20 b/min; RESPIRATORY RATE (OBSERVED) 22 b/min; TIDAL VOLUME 375 mL; TOTAL HEMOGLOBIN 7.2 G/dl (12.0-16.0)
[2018-02-18 06:56] LABS: ANISOCYTOSIS 2+; NUCLEATED RED BLOOD CELLS 4 /100WBC (0-0); PLATELET ESTIMATE DECREASED; TOTAL CELLS COUNTED 100
[2018-02-18 06:57] LABS: POLYCHROMASIA 1+; SCHISTOCYTES FEW; SMUDGE CELLS FEW; TARGET CELLS FEW; TOXIC GRANULATION 3+
[2018-02-18 07:27] LABS: PROTHROMBIN TIME 47.5 SECONDS (9.0-12.0)
[2018-02-18 07:29] LABS: INR 4.9 INR
[2018-02-18] MEDS ORDERED: albumin (human) 25% 100ml IV 100 ML IV PRN (08:00)
[2018-02-18] MEDS: famotidine/PF 10 mg/ml inj IV SCH (08:00)
[2018-02-18] MEDS: K and/or MAG REPLACEMENT MC SCH (08:00)
[2018-02-18] MEDS ORDERED: epoetin 20,000 units/ml inj IV ONE (08:00)
[2018-02-18] MEDS ORDERED: normal saline 1000ml 250 ML IV PRN (08:00)
[2018-02-18] MEDS ORDERED: heparin 1,000 units/ml 10ml inj HE ONE ×2 (08:00)
[2018-02-18] MEDS ORDERED: normal saline 1000ml 100 ML IV PRN (08:00)
[2018-02-18] MEDS: DEXTROSE 5% IV SCH ×2 (08:07→19:42)
[2018-02-18] MEDS: fluconazole-Diflucan 200mg/NS 100 ML IV SCH (08:07)
[2018-02-18] MEDS: WATER IV SCH ×2 (08:07→19:42)
[2018-02-18] MEDS: AZTREONAM IV SCH ×2 (08:07→19:42)
[2018-02-18] MEDS ORDERED: phytonadione inj. 10 MG in normal saline 100ml IV soln 99 ML IV ONE ×2 (08:20→15:50)
[2018-02-18] MEDS: pantoprazole IV 80 MG in normal saline 100ml IV soln 100 ML IV SCH ×2 (10:51→15:05)
[2018-02-18] MEDS ORDERED: albumin (Human) 5% 250ml 250 ML IV PRN (16:55)
[2018-02-18] MEDS: [UNRECOGNIZED DRUG - REMARK] IV SCH ×3 (17:00)
[2018-02-18] MEDS: insulin glargine (Lantus) pen - multi-dose SQ SCH (19:49)
[2018-02-18] MEDS: Melatonin 3mg tablet PO SCH (19:50)
[2018-02-19] VITALS (21 sets, daily range): BP systolic 99–132; BP diastolic 38–52
[2018-02-19] MEDS: metroNIDAZOLE-Flagyl 500mg/NS 100 ML IV SCH ×2 (00:27→07:39)
[2018-02-19] MEDS: mineral oil/petrolatum ophthal oint EACHEYE SCH ×2 (02:21→07:39)
[2018-02-19] MEDS: insulin regular, human vial - multi-dose SQ SCH ×2 (02:25→07:43)
[2018-02-19] MEDS: ipratropium/albuterol 3ml nebule NEB SCH ×3 (03:12→10:32)
[2018-02-19 03:36] LABS: ABG BASE EXCESS 2.5 mmol/L (-2.0-3.0); ABG HCO3 26.6 mmol/L (22.0-26.0); ABG OXYGEN SATURATION 95.1 % (95-98); ABG PCO2 (T) 39.6 mmHg (32.0-45.0); ABG PH (T) 7.446 (7.350-7.450); ABG PO2 (T) 76.9 mmHg (83-108); FCOHb 1.2 % (0.5-1.5); FMetHb 0.2 % (0.3-1.12); FO2Hb 93.8 % (94-100); MINUTE VOLUME 7 L/min; PATIENT TEMPERATURE 37.1; PEEP 5 cm H2O; RESPIRATORY RATE 20 b/min; RESPIRATORY RATE (OBSERVED) 21 b/min; TIDAL VOLUME 375 mL; TOTAL HEMOGLOBIN 8.2 G/dl (12.0-16.0)
[2018-02-19] MEDS: pantoprazole IV 80 MG in normal saline 100ml IV soln 100 ML IV SCH ×2 (04:20→12:01)
[2018-02-19 05:38] LABS: BASOPHILS % (AUTO) 0.1 % (0-1); EOSINOPHILS % (AUTO) 0 % (0-6); HEMATOCRIT 23.6 % (35.0-45.0); HEMOGLOBIN 8.2 g/dl (12.0-16.0); LYMPHOCYTES # (AUTO) 1.3 X10'3 (1.1-4.8); LYMPHOCYTES % (AUTO) 4.3 % (21-51); MEAN CORPUSCULAR HEMOGLOBIN 30.4 PG (27.0-31.0); MEAN CORPUSCULAR HGB CONC 34.6 % (33.0-36.5); MEAN CORPUSCULAR VOLUME 87.8 FL (78-98); MEAN PLATELET VOLUME 10.9 FL (7.4-10.4); MONOCYTES # (AUTO) 2.5 X10'3 (0-0.9); NEUTROPHILS # (AUTO) 27.5 X10'3 (1.8-7.7); NEUTROPHILS % (AUTO) 87.6 % (42-75); RED BLOOD COUNT 2.69 X10'6 (4.20-5.60); RED CELL DISTRIBUTION WIDTH 17.9 % (11.5-14.5)
[2018-02-19 05:54] LABS: PROTHROMBIN TIME 42.6 SECONDS (9.0-12.0)
[2018-02-19 05:56] LABS: INR 4.3 INR
[2018-02-19 06:00] LABS: ALANINE AMINOTRANSFERASE 117 U/L (12-78); ALBUMIN 1.8 G/DL (3.4-5.0); ALKALINE PHOSPHATASE 324 IU/L (46-116); ANION GAP 8 (8-16); ASPARTATE AMINO TRANSFERASE 166 U/L (10-37); BLOOD UREA NITROGEN 56 MG/DL (7-18); BUN/CREATININE RATIO 21.1 (6.6-38.0); CALCIUM 7.2 MG/DL (8.5-10.1); CHLORIDE 99 MMOL/L (99-107); CREATININE 2.66 MG/DL (0.40-0.90); GLUCOSE 116 MG/DL (70-104); MAGNESIUM 1.8 MG/DL (1.5-2.4); PREALBUMIN 7.8 MG/DL (19-36); SODIUM 132 MMOL/L (135-145); TOTAL CARBON DIOXIDE 24.9 MMOL/L (24-32); eGFR 18 ML/MIN
[2018-02-19 06:01] LABS: ALBUMIN/GLOBULIN RATIO 0.9 (1.1-1.5); POTASSIUM 4.9 MMOL/L (3.5-5.1); TOTAL PROTEIN 3.8 G/DL (6.4-8.2); TRIGLYCERIDES 34 MG/DL (20-135)
[2018-02-19 07:15] LABS: PLATELET COUNT 17 X10'3 (140-440); PROTHROMBIN TIME 42.6 SECONDS (9.0-12.0)
[2018-02-19 07:16] LABS: PARTIAL THROMBOPLASTIN TIME 108 SECONDS (22-32)
[2018-02-19 07:17] LABS: INR 4.3 INR
[2018-02-19 07:18] LABS: D-DIMER 25.73 MG/L FEU (0-0.50); WHITE BLOOD COUNT 31.4 X10'3 (4.5-11.0)
[2018-02-19 07:19] LABS: PLATELET COUNT 17 X10'3 (140-440)
[2018-02-19] MEDS: fluconazole-Diflucan 200mg/NS 100 ML IV SCH (07:38)
[2018-02-19] MEDS: K and/or MAG REPLACEMENT MC SCH (07:44)
[2018-02-19] MEDS: albumin (Human) 5% 250 ML IV solution IV PRN (08:57)
[2018-02-19 09:14] LABS: ANISOCYTOSIS 1+; PLATELET ESTIMATE DECREASED; POLYCHROMASIA 1+; SCHISTOCYTES FEW; TOTAL CELLS COUNTED 100
[2018-02-19 09:15] LABS: HYPOCHROMASIA 1+; SPHEROCYTES 1+; TARGET CELLS FEW
[2018-02-19 09:16] LABS: LARGE PLATELETS FEW
[2018-02-19] MEDS: DEXTROSE 5% IV SCH (09:37)
[2018-02-19] MEDS: WATER IV SCH (09:37)
[2018-02-19] MEDS: AZTREONAM IV SCH (09:37)
[2018-02-19] MEDS: normal saline 1000ml 1,000 ML IV SCH (11:35)
[2018-02-19] MEDS: midazolam 100mg in NS 100ml 100 ML IV PRN (12:30)
[2018-02-19] MEDS: FENTANYL-0.9 % NACL/PF 100 ML IV PRN (16:58)
[2018-02-20] MEDS: midazolam 100mg in NS 100ml 100 ML IV PRN (01:24)
[2018-02-20] MEDS: FENTANYL-0.9 % NACL/PF 100 ML IV PRN (04:17)
[2018-02-20] MEDS ORDERED: LORazepam 2 mg/ml vial IV PRN (08:00)
[2018-02-20] MEDS ORDERED: morphine 4 MG/ML inj SYRINge IV PRN (08:00)
[2018-02-20 10:00] VITALS: BP 74/26
[2018-02-20 17:01] VITALS: BP 98/38
[2018-02-20 20:00] VITALS: BP 86/29
[2018-02-21] MEDS: normal saline 1000ml 1,000 ML IV SCH (01:05)
[2018-02-21 07:19] VITALS: BP 92/32
== END 2018-02-21 08:30 | disposition expired | DRG 853 ==
LOC: ER 16:28 → ED HOLD 02-09 02:17 → CICU 2S 02-09 10:10 → MED 3N 02-20 16:27
PROVIDERS: ADMIT Internal Medicine; ATTEND Internal Medicine Critical Care Medicine
PROC: B4201ZZ Computerized Tomography (CT Scan) of Abdominal Aorta using Low Osmolar Contrast (ICD-10-PCS; 2018-02-08)
PROC: B4241ZZ Computerized Tomography (CT Scan) of Superior Mesenteric Artery using Low Osmolar Contrast (ICD-10-PCS; 2018-02-08)
PROC: B4281ZZ Computerized Tomography (CT Scan) of Bilateral Renal Arteries using Low Osmolar Contrast (ICD-10-PCS; 2018-02-08)
PROC: B4211ZZ Computerized Tomography (CT Scan) of Celiac Artery using Low Osmolar Contrast (ICD-10-PCS; 2018-02-08)
PROC: 5A1955Z Respiratory Ventilation, Greater than 96 Consecutive Hours (ICD-10-PCS; 2018-02-09)
PROC: 04C50ZZ Extirpation of Matter from Superior Mesenteric Artery, Open Approach (ICD-10-PCS; 2018-02-09)
PROC: 30233N1 Transfusion of Nonautologous Red Blood Cells into Peripheral Vein, Percutaneous Approach (ICD-10-PCS; 2018-02-09)
PROC: 5A09357 Assistance with Respiratory Ventilation, Less than 24 Consecutive Hours, Continuous Positive Airway Pressure (ICD-10-PCS; 2018-02-09)
PROC: 0BH17EZ Insertion of Endotracheal Airway into Trachea, Via Natural or Artificial Opening (ICD-10-PCS; 2018-02-09)
PROC: 02HV33Z Insertion of Infusion Device into Superior Vena Cava, Percutaneous Approach (ICD-10-PCS; 2018-02-09)
PROC: 041 Lower Arteries, Bypass (ICD-10-PCS; principal; 2018-02-09 12:21)
PROC: 0DB80ZZ Excision of Small Intestine, Open Approach (ICD-10-PCS; 2018-02-10)
PROC: 0B7 Respiratory System, Dilation (ICD-10-PCS; 2018-02-13)
PROC: 0DB80ZZ Excision of Small Intestine, Open Approach (ICD-10-PCS; 2018-02-13)
PROC: 0FT40ZZ Resection of Gallbladder, Open Approach (ICD-10-PCS; 2018-02-13)
PROC: 0DTK0ZZ Resection of Ascending Colon, Open Approach (ICD-10-PCS; 2018-02-13)
PROC: 30233R1 Transfusion of Nonautologous Platelets into Peripheral Vein, Percutaneous Approach (ICD-10-PCS; 2018-02-13)
PROC: 06HM33Z Insertion of Infusion Device into Right Femoral Vein, Percutaneous Approach (ICD-10-PCS; 2018-02-14)
PROC: B54BZZA Ultrasonography of Right Lower Extremity Veins, Guidance (ICD-10-PCS; 2018-02-14)
PROC: 5A1D70Z Performance of Urinary Filtration, Intermittent, Less than 6 Hours Per Day (ICD-10-PCS; 2018-02-14)
PROC: 5A1D70Z Performance of Urinary Filtration, Intermittent, Less than 6 Hours Per Day (ICD-10-PCS; 2018-02-15)
PROC: 5A1D70Z Performance of Urinary Filtration, Intermittent, Less than 6 Hours Per Day (ICD-10-PCS; 2018-02-16)
PROC: 30233L1 Transfusion of Nonautologous Fresh Plasma into Peripheral Vein, Percutaneous Approach (ICD-10-PCS; 2018-02-17)
PROC: 30233K1 Transfusion of Nonautologous Frozen Plasma into Peripheral Vein, Percutaneous Approach (ICD-10-PCS; 2018-02-17)
PROC: 5A1D70Z Performance of Urinary Filtration, Intermittent, Less than 6 Hours Per Day (ICD-10-PCS; 2018-02-18)
DX: A41.9 Sepsis, unspecified organism (principal); K55.019 Acute (reversible) ischemia of small intestine, extent unspecified; K72.00 Acute and subacute hepatic failure without coma; J96.00 Acute respiratory failure, unspecified whether with hypoxia or hypercapnia; Z99.11 Dependence on respirator [ventilator] status; E46 Unspecified protein-calorie malnutrition; K81.0 Acute cholecystitis; K65.9 Peritonitis, unspecified; K85.90 Acute pancreatitis without necrosis or infection, unspecified; N17.9 Acute kidney failure, unspecified; D68.9 Coagulation defect, unspecified; N39.0 Urinary tract infection, site not specified; Z68.41 Body mass index [BMI] 40.0-44.9, adult; K56.7 Ileus, unspecified; I70.1 Atherosclerosis of renal artery; D69.6 Thrombocytopenia, unspecified; E87.6 Hypokalemia; R93.8 Abnormal findings on diagnostic imaging of other specified body structures; D64.9 Anemia, unspecified; G47.33 Obstructive sleep apnea (adult) (pediatric); I11.0 Hypertensive heart disease with heart failure; I16.0 Hypertensive urgency; E11.51 Type 2 diabetes mellitus with diabetic peripheral angiopathy without gangrene; I50.9 Heart failure, unspecified; I67.9 Cerebrovascular disease, unspecified; K21.9 Gastro-esophageal reflux disease without esophagitis; M79.7 Fibromyalgia; I25.10 Atherosclerotic heart disease of native coronary artery without angina pectoris; N27.0 Small kidney, unilateral; B96.20 Unspecified Escherichia coli [E. coli] as the cause of diseases classified elsewhere; Z96.643 Presence of artificial hip joint, bilateral; Z51.5 Encounter for palliative care; Z93.0 Tracheostomy status; Z79.899 Other long term (current) drug therapy; Z79.01 Long term (current) use of anticoagulants; Z79.4 Long term (current) use of insulin; Z79.82 Long term (current) use of aspirin; Z88.0 Allergy status to penicillin; Z88.6 Allergy status to analgesic agent; Z88.8 Allergy status to other drugs, medicaments and biological substances; Z91.041 Radiographic dye allergy status; Z86.73 Personal history of transient ischemic attack (TIA), and cerebral infarction without residual deficits; Z82.3 Family history of stroke; Z80.9 Family history of malignant neoplasm, unspecified
CPT/HCPCS: 36415; 36600; 71045; 74018; 74174; 74176; 80053; 80061; 81001; 82140; 82330; 82803; 82810; 82948; 83036; 83605; 83690; 83735; 83880; 84100; 84132; 84134; 84478; 84484; 84560; 85018; 85025; 85027; 85379; 85384; 85610; 85730; 86022; 86885; 86900; 86901; 86920; 87040; 87070; 87075; 87077; 87088; 87102; 87186; 87207; 87340; 88300; 88304; 88307; 90935; 93005; 93306; 94002; 94003; 94640; 94660; 94760; 96365; 96375; 96376; 99285; A4623; A6209; A6212; A6213; A6223; A6251; A6253; A6255; A6257; A6258; A6266; A6449; A7000; A7015; A7521; A7525; A7526; C1729; C1758; C1781; C9113; G0257; J0360; J0883; J0885; J1170; J1200; J1450; J1580; J1644; J1815; J1956; J2250; J2270; J2405; J2930; J3010; J3430; J3475; J3480; J3490; J7030; J7060; J7100; J7120; P9016; P9035; P9045; P9047; P9059; Q9967